=== PATIENT | male | born 1975 | race Caucasian/White ===

== ENCOUNTER 2017-02-05 08:55 | Emergency (ER) | payer OTHER ==
[~2017-02-05] VITALS: Ht 167.6 cm; Wt 120.8 kg
[2017-02-05 09:06] VITALS: TEMP 36.5; Ht 167.6 cm; Wt 120.8 kg
[2017-02-05] MEDS ORDERED: KETOROLAC TROMETHAMINE 60 MG/2 ML VIAL IM STA (09:43)
[2017-02-05] MEDS ORDERED: HYDROmorphone INJ 0.5 MG/0.5 ML SYR IM ONE (09:45)
--- NOTE | 2017-02-05 11:04 | DIAGNOSTIC IMAGING REPORT ---
LUMBAR SPINE WITHOUT CT DOSE: 1280.58 mGy.cm HISTORY: Trauma. Pain. lower selvin pain TECHNIQUE: Multiaxial CT images of the lumbar spine were performed and reformatted in the sagittal and coronal plane without the use of contrast. A dose lowering technique was utilized adhering to the principles of ALARA. COMPARISON: None. FINDINGS: Considerable degenerative disc change throughout the entire lumbar region. Mild compression deformity of L1 and L2 felt to be old based on CT criteria. Slight wedge deformity inferior endplate T12 also felt to be old. No evidence for subluxation. Moderate degenerative change posterior elements. No evidence for acute bony abnormality based on the transaxial images. Superior aspects of the sacroiliac joints are intact with mild degenerative change noted. IMPRESSION: 1. Old mild compression deformities of T12, L1, and L2. 2. No acute bony abnormality. 3. Degenerative changes throughout. The above report was generated using voice recognition software. It may contain grammatical, syntax or spelling errors. Electronically signed by: Myron Creda M.D. 02/05/2017 11:02 AM Dictated Date/Time: 02/05/2017 10:56 AM
--- NOTE | 2017-02-05 11:05 | DIAGNOSTIC IMAGING REPORT ---
PELVIS 1 OR 2 VIEW ROUTINE CLINICAL HISTORY: fall trauma. Pain. COMPARISON: None. DISCUSSION: Moderate degenerative change of the hips as well as sacroiliac joints. Moderate degenerative changes low lumbar spine. Several scattered surgical clips. Mild deformity right iliac wing probably secondary to old posttraumatic change. No evidence for acetabular protrusion. There is no evidence for soft tissue swelling. IMPRESSION: Degenerative change. No acute process. The above report was generated using voice recognition software. It may contain grammatical, syntax or spelling errors. Electronically signed by: Myron Cerda M.D. 02/05/2017 11:04 AM Dictated Date/Time: 02/05/2017 11:03 AM
[2017-02-05] MEDS ORDERED: OXYC1TAB3 PO (11:17)
[2017-02-05] MEDS ORDERED: PRED10TA PO (11:19)
[2017-02-05 11:48] VITALS: BP 181/95; PULSE 81; O2SAT 93
--- NOTE | 2017-02-05 17:00 | EMERGENCY ROOM VISIT NOTE ---
History Report prepared by Miguel: Andrew Pineda Under the Supervision of: Dr. Lj David D.O. First contact with patient: 09:26 Chief Complaint: BACK INJURY Stated Complaint: BACK PAIN History of Present Illness The patient is a 41 year old male who presents to the Emergency Room with complaints of a persistent worsening back injury that occurred two weeks ago. At this time, the patient accidentally slipped while walking down the stairs at work. He landed on the right side of his back. At that time, he got a bruise with some mild pain which he used Advil and Icy Hot to try to relieve. However, five days ago his pain began to worsen. It then radiated into the front of his right thigh. He went to an acute care clinic and received X-Rays and Prednisone of which he is on his third day. This morning, he had an extremely difficult time getting out of bed. His back pain is exacerbated with sitting or lying down. He states that his pain is better when he stands. He denies any problems urinating or defecating. He denies any fevers, previous back surgeries, IV drug use, or weakness/numbness to his legs. Pt denies headache, change in vision, fevers, chest pain, shortness of breath, nausea, vomiting, diarrhea, pain with urination, and melena. 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 Source of History: patient Onset: 2 weeks ago Position: back (right side) Symptom Intensity: moderate Quality: ache Timing: worsening Modifying Factors (Worsening): rest Modifying Factors (Relieving): other (Standing) Associated Symptoms: No headache, No chest pain, No SOB, No nausea, No vomiting, No melena, No diarrhea, No urinary symptoms, No weakness, No numbness Note: He denies any trouble urinating or defecting. Review of Systems See HPI for pertinent positives & negatives. A total of 10 systems reviewed and were otherwise negative. Past Medical & Surgical Surgical Problems: (1) History of nephrectomy, unilateral (2) Wilms' tumor Family History Cancer Hypertension Kidney disease Social History Smoking Status: Never Smoker Smokeless Tobacco Use: No Drug Use: none Occupation Status: employed Current/Historical Medications Scheduled Prednisone (Prednisone), 0 PO UD Scheduled PRN Oxycodone Immediate Rel Tab (Roxicodone Ir), 5 MG PO Q6H PRN for Pain Allergies Coded Allergies: Cefaclor (Unverified Allergy, Intermediate, RASH, 02/05/17) Erythromycin (Unverified Allergy, Intermediate, RASH, 02/05/17) Penicillins (Unverified Allergy, Intermediate, RASH, 02/05/17) Physical Exam Vital Signs Date Time Temp Pulse Resp B/P (MAP) Pulse Ox O2 Delivery O2 Flow Rate FiO2 02/05/17 11:48 81 181/95 93 02/05/17 10:30 82 18 159/84 98 Room Air 02/05/17 09:06 36.5 84 18 169/121 98 Room Air Physical Exam GENERAL: Ambulating throughout the room holding right lower back, alert, well appearing, well nourished, minimal distress, non-toxic EYE EXAM: normal conjunctiva. OROPHARYNX: no exudate, no erythema, lips, buccal mucosa, and tongue normal and mucous membranes are moist NECK: supple, no nuchal rigidity, no adenopathy, non-tender LUNGS: Clear to auscultation. Normal chest wall mechanics HEART: no murmurs, S1 normal and S2 normal ABDOMEN: abdomen soft, non-tender, normo-active bowel sounds, no masses, no rebound or guarding. BACK: There is a deformity/absence of the right lower back with scoliosis. No midline tenderness. No obvious stepoff. Tenderness to palpation over the left SI joint. SKIN: no rashes and no bruising UPPER EXTREMITIES: upper extremities are grossly normal. LOWER EXTREMITIES: Flexion and extension of the bilateral hips, knees, ankles, and EHL's are 5/5 bilaterally. Gross sensation intact. Able to walk on heels and toes. NEURO EXAM: Normal sensorium. Medical Decision & Procedures ER Provider Diagnostic Interpretation: Radiology results as stated below per my review and the radiologist's interpretation: PELVIS 1 OR 2 VIEW ROUTINE CLINICAL HISTORY: fall trauma. Pain. COMPARISON: None. DISCUSSION: Moderate degenerative change of the hips as well as sacroiliac joints. Moderate degenerative changes low lumbar spine. Several scattered surgical clips. Mild deformity right iliac wing probably secondary to old posttraumatic change. No evidence for acetabular protrusion. There is no evidence for soft tissue swelling. IMPRESSION: Degenerative change. No acute process. The above report was generated using voice recognition software. It may contain grammatical, syntax or spelling errors. Electronically signed by: Myron Cerda M.D. 02/05/2017 11:04 AM Dictated Date/Time: 02/05/2017 11:03 AM LUMBAR SPINE WITHOUT CT DOSE: 1280.58 mGy.cm HISTORY: Trauma. Pain. lower selvin pain TECHNIQUE: Multiaxial CT images of the lumbar spine were performed and reformatted in the sagittal and coronal plane without the use of contrast. A dose lowering technique was utilized adhering to the principles of ALARA. COMPARISON: None. FINDINGS: Considerable degenerative disc change throughout the entire lumbar region. Mild compression deformity of L1 and L2 felt to be old based on CT criteria. Slight wedge deformity inferior endplate T12 also felt to be old. No evidence for subluxation. Moderate degenerative change posterior elements. No evidence for acute bony abnormality based on the transaxial images. Superior aspects of the sacroiliac joints are intact with mild degenerative change noted. IMPRESSION: 1. Old mild compression deformities of T12, L1, and L2. 2. No acute bony abnormality. 3. Degenerative changes throughout. The above report was generated using voice recognition software. It may contain grammatical, syntax or spelling errors. Electronically signed by: Myron Cerda M.D. 02/05/2017 11:02 AM Dictated Date/Time: 02/05/2017 10:56 AM Medications Administered Medications (Trade) Dose Ordered Sig/Beltran Route Start Time Stop Time Status Last Admin Dose Admin Ketorolac Tromethamine (Toradol Inj) 60 mg NOW STAT IM 02/05/17 09:43 02/05/17 09:44 DC 02/05/17 09:53 60 MG Hydromorphone HCl (Dilaudid Inj) 0.5 mg NOW ONCE IM 02/05/17 09:45 02/05/17 09:46 DC 02/05/17 09:54 0.5 MG ED Course ED COURSE: Vital signs were reviewed and showed hypertension. The patients medical record was reviewed The above diagnostic studies were performed and reviewed. ED treatments and interventions as stated above. 0926: The patient was evaluated in room B7. A complete history and physical examination was performed. 0943: Ordered Toradol Inj 60 mg IM 0945: Ordered Dilaudid Inj 0.5 mg IM 1113: Upon reevaluation, the patient is resting. I discussed my findings with the patient and he understands and agrees with the treatment plan. Based on the patients age, coexisting illnesses, exam and lab findings the decision to treat as an outpatient was made. The patient remained stable while under my care. The patient appeared well at the time of discharge. Medical Decision Differential diagnoses include major intracranial, cervical, spinal, thoracic, abdominal, pelvic and neurologic injury. Fracture, contusion, sprain, strain, laceration, abrasions included as well. Patient presents to ER for 2 weeks worth of back pain following a fall. Previous x-rays per patient were negative. CT lumbar spine and x-rays of pelvis showed no acute pathology. Patient was given IM Toradol and morphine. He did have significant improvement of his pain. He was updated bedside. I do believe this is most likely radicular in nature. He will continue his steroids. He was discharged with OxyIR and instructed not to drive all taking this medications. Discussed with Pt concerning signs and symptoms to watch out for. Pt was instructed to follow up with their PCP and discussed with the patient their option to return to the ED at anytime for persistent or worsening symptoms. The appropriate anticipatory guidance and out-patient management, including indications for return to the emergency department, were explained at length to the patient and understood. [place] Drug Monitoring Program Search Results: patient reviewed within database, no issues identified Medication Reconcilliation Current Medication List: was personally reviewed by me Blood Pressure Screening Patient's blood pressure: Elevated blood pressure Blood pressure disposition: Elevated BP felt to be situational Impression Primary Impression: Back pain Scribe Attestation The scribe's documentation has been prepared under my direction and personally reviewed by me in its entirety. I confirm that the note above accurately reflects all work, treatment, procedures, and medical decision making performed by me. Departure Information Dispostion Home / Self-Care Prescriptions Oxycodone Immediate Rel Tab (ROXICODONE IR) 5 Mg Tab 5 MG PO Q6H Y for Pain, #10 TAB Prov: Lj David, 02/05/17 Referrals No Doctor, Assigned (PCP) Forms HOME CARE DOCUMENTATION FORM, IMPORTANT VISIT INFORMATION, Work Instructions Patient Instructions Back Pain - [facility], [facility] Additional Instructions Please follow up with your primary care doctor with in the next 24 hours. Any worsening of your symptoms, please return to the ED immediately. This includes any fevers greater than 100.4, worsening pain, weakness or numbness in your legs , unable to urinate, unable to move youor bowels, chest pain, shortness breath, persistent nausea, vomiting, unable to eat or drink, or any other concerning signs or symptoms from your standpoint. You were given medications during this visit that will inhibit your ability to drive, operate machinery and work. Please do NOT drive, operate machinery or work for the next 12hrs. You were also given a prescription for a narcotic. While taking this medication you should also not drive, operate machinery and or work. You were found to have a blood pressure greater than 120 systolic over 90 diastolic. Due to the new Medicare guidelines, we are now recommending that you follow up with your primary care doctor in regards to this elevated blood pressure. Problem Qualifiers Primary Impression: Back pain Back pain location: low back pain Chronicity: acute Back pain laterality: right Sciatica presence: unspecified whether sciatica present Qualified Codes : M54.5 - Low back pain
== END 2017-02-05 11:30 | disposition home or self-care (01) ==
LOC: C.EDB 08:57
DX: M54.9 Dorsalgia, unspecified (principal); Z98.890 Other specified postprocedural states; Z88.0 Allergy status to penicillin; Z88.3 Allergy status to other anti-infective agents; Z88.8 Allergy status to other drugs, medicaments and biological substances; Z80.9 Family history of malignant neoplasm, unspecified; Z82.49 Family history of ischemic heart disease and other diseases of the circulatory system

== ENCOUNTER → 2017-02-06 | Outpatient (CLI) | payer OTHER ==
[~2017-02-06] MED LIST: OXYC1TAB3 PO; PRED10TA PO
--- NOTE | 2017-02-06 15:07 | DIAGNOSTIC IMAGING REPORT ---
LUMBAR SPINE 5 VIEWS HISTORY: LOWER BACK PAIN COMPARISON: Lumbar spine CT 02/05/2017. FINDINGS: Old mild to moderate compression deformities at T12-L4. This remains unchanged. No acute fracture or subluxation. Retroperitoneal surgical clips are again noted. Mild facet osteoarthritis within the lower lumbar spine. Mild disc space narrowing at L1-L2 remains unchanged. IMPRESSION: 1. No acute fracture or subluxation within the lumbar spine. 2. Old mild to moderate compression deformities from T12 through L4, unchanged. Electronically signed by: Pieter Valle M.D. 02/06/2017 3:05 PM Dictated Date/Time: 02/06/2017 3:01 PM
== END | disposition home or self-care (01) ==
LOC: C.RDSM 14:48
PROVIDERS: ATTEND Internal Medicine
DX: M54.5 Low back pain (principal)

== ENCOUNTER 2018-06-16 03:30 | Inpatient (IN) ==
[2018-06-16] MEDS ORDERED: SODIUM CHLORIDE 0.9% 1000ML 1,000 ML IV SCH ×3 (03:45→07:27)
[2018-06-16 04:10] LABS: Basophils # (auto) 0.03 K/uL (0-0.2); Basophils % (auto) 0.2 %; Eosinophils % (auto) 2.2 %; Hematocrit (blood only) 43.3 % (42-52); Hemoglobin 14.6 g/dL (14.0-18.0); Immature Granulocytes # (auto) 0.03 K/uL (0.00-0.02); Immature Granulocytes % (auto) 0.2 %; Lymphocytes # (auto) 1.24 K/uL (1.2-3.4); Lymphocytes % (auto) 9.3 %; Mean Corpuscular Hgb Conc 33.7 g/dL (32-36); Mean Corpuscular Volume 85.4 fL (80-100); Mean Platelet Volume 10.3 fL (7.4-10.4); Monocytes # (auto) 0.85 K/uL (0.11-0.59); Monocytes % (auto) 6.4 %; Neutrophils # (auto) 10.89 K/uL (1.4-6.5); Neutrophils % (auto) 81.7 %; Platelet Count 218 K/uL (130-400); RDW Coefficient of Variation 14.1 % (11.5-14.5); Red Blood Count 5.07 M/uL (4.7-6.1); White Blood Count 13.34 K/uL (4.8-10.8)
[2018-06-16 04:12] LABS: Appearance Urine Slightly Cloudy (Clear); Bilirubin Urine Negative (Negative); Blood Urine 3+ (Negative); Color Urine Yellow; Glucose Urine UA Negative (Negative); Ketones Urine Negative (Negative); Leukocyte Esterase Urine Trace (Negative); Nitrite Urine Negative (Negative); Protein Urine 1+ (Negative); Urobilinogen Urine Negative (Negative)
[2018-06-16 04:24] LABS: RBC Urine >30 /hpf (0-4)
[2018-06-16 04:25] LABS: Bacteria Urine Negative (Negative)
--- NOTE | 2018-06-16 04:26 | Emergency Department Note ---
History of Present Illness General Chief complaint: Abdominal Pain Stated complaint: indigestion,abd pain Source: patient Mode of arrival: ambulatory Limitations: no limitations History of Present Illness Maximum Pain Intensity: 8 This patient is a 42-year-old male who presents to the emergency department complaining of abdominal pain. The patient reports that yesterday, throughout the day he had indigestion which is not unusual for him. He states that he woke up from sleep 3 hours ago due to pain in his left abdomen. He states it started as a sharp pain and is located in the left flank/lower abdomen. He has had some nausea but denies vomiting. He denies constipation, diarrhea, urinary symptoms or fevers. He denies any history of abdominal issues or surgeries. He does report a history of GERD and takes omeprazole daily for this. He does state he recently started the whole 30 diet as recommended by his physician and has had some loose stools with this. He rates his overall discomfort an 8/10. He states that nothing has made his pain better or worse since it began. Home Medications Home Medications Medication Instructions Recorded Confirmed Type cyclobenzaprine 10 mg PO HS PRN 06/16/18 06/16/18 History [id number]-[id number] acid 1 tab PO DAILY 06/16/18 06/16/18 History [Centrum] omeprazole magnesium [Prilosec OTC] 20 mg PO DAILY 06/16/18 06/16/18 History Allergies Allergy/AdvReac Type Severity Reaction Status Date / Time cefaclor Allergy Intermediate RASH Unverified 06/16/18 05:54 erythromycin base Allergy Intermediate RASH Unverified 06/16/18 05:54 Penicillins Allergy Intermediate RASH Unverified 06/16/18 05:54 Past Med/Surg History Medical History Hurthle cell neoplasm of thyroid Surgical History H/O unilateral orchiectomy H/O right nephrectomy Social History Feels Safe at Home: Yes Smoking Status: Never smoker Review of Systems A total of 10 systems reviewed and were otherwise negative Physical Exam Vital Signs Vital Signs - 24 hr 06/16/18 03:34 06/16/18 04:47 06/16/18 05:18 Temperature 36.3 C L Temperature Source Oral Sepsis Recent Fever Within 48 Hours No Sepsis New/Unexplained Change in Mental Status No Sepsis Action Taken by Nursing No Action Required Pulse Rate 90 Pulse Rate [Right Finger] 84 70 Pulse Rhythm [Right Finger] Regular Respiratory Rate 18 18 19 Respiratory Effort / Characteristics Non-Labored Spontaneous Respiratory Depth Normal Normal Respiratory Pattern Regular Blood Pressure 182/101 H Blood Pressure [Right Arm] 205/124 H 150/98 H Blood Pressure Mean 128 Blood Pressure Mean [Right Arm] 151 115 Blood Pressure Position [Right Arm] Lying Pulse Oximetry 98 97 100 Oxygen Delivery Method Room Air Room Air 06/16/18 06:10 Temperature Temperature Source Sepsis Recent Fever Within 48 Hours Sepsis New/Unexplained Change in Mental Status Sepsis Action Taken by Nursing Pulse Rate Pulse Rate [Right Finger] 73 Pulse Rhythm [Right Finger] Regular Respiratory Rate 18 Respiratory Effort / Characteristics Respiratory Depth Normal Respiratory Pattern Blood Pressure Blood Pressure [Right Arm] 145/98 H Blood Pressure Mean Blood Pressure Mean [Right Arm] 113 Blood Pressure Position [Right Arm] Pulse Oximetry 95 Oxygen Delivery Method Room Air VITALS: Vitals are noted on the nurse's note and reviewed by myself. Vital signs stable. GENERAL: This is a 42-year-old male, in no acute distress, nondiaphoretic, well- developed well-nourished. SKIN: The skin was without rashes. EYES: Pupils equal round and reactive to light and accommodation. MOUTH: Mucous membranes moist. NECK: Supple without nuchal rigidity. HEART: Regular rate and rhythm without murmurs gallops or rubs. LUNGS: Clear to auscultation bilaterally without wheezes, rales or rhonchi. ABDOMEN: Positive bowel sounds x 4. Soft, mild tenderness to palpation in the left flank. No guarding or rebound tenderness. NEURO: Patient was alert and oriented to person place and time. Course Consultations Consultation #1: Dr. Shipman - urology Dr. Shipman recommends medical admission and will consult on the patient in the morning for stent placement. Patient will be kept n.p.o. Consultation #2: Dr. Black [facility] hospitalist Administered Medications Discontinued Medications Ciprofloxacin (Cipro) Confirm Administered Dose 400 [facility] Stop: 06/16/18 06:16 Last Admin: 06/16/18 06:21 Dose: 400 mg Documented by: [id number] Sodium Chloride (Nss 1000ml) 1,000 mls @ 999 mls/hr IV .Q1H1M BRAD Stop: 06/16/18 04:45 Last Infusion: 06/16/18 05:11 Dose: 0 mls/hr Documented by: [id number] Admin: 06/16/18 04:03 Dose: 999 mls/hr Documented by: [id number] Sodium Chloride (Nss 1000ml) 1,000 mls @ 999 mls/hr IV .Q1H1M BRAD Stop: 06/16/18 06:30 Last Infusion: 06/16/18 06:48 Dose: 0 mls/hr Documented by: [id number] Admin: 06/16/18 05:45 Dose: 999 mls/hr Documented by: [id number] Morphine Sulfate (Morphine Sulfate) 6 mg IV NOW STA Stop: 06/16/18 05:02 Last Admin: 06/16/18 05:15 Dose: 6 mg Documented by: [id number] Morphine Sulfate (Morphine Sulfate) 6 mg IV NOW STA Stop: 06/16/18 06:32 Last Admin: 06/16/18 06:35 Dose: 6 mg Documented by: [id number] Ondansetron HCl (Zofran) 4 mg IV NOW STA Stop: 06/16/18 05:02 Last Admin: 06/16/18 05:15 Dose: 4 mg Documented by: [id number] Medical Decision Making Differential Diagnosis Differential diagnosis includes diverticulitis, kidney stone, colitis, bowel obstruction, gastroenteritis, among others. Medical Records Attestation: I reviewed the patient's medical records. Home Medications Current Medication List: was personally reviewed by me Laboratory Data Attestation: I reviewed the patient's lab results. Result diagrams: 06/16/18 04:00 06/16/18 04:00 Lab Results 06/16/18 06/16/18 06/16/18 Range/Units 04:00 04:00 04:01 WBC 13.34 H (4.8-10.8) K/uL RBC 5.07 (4.7-6.1) M/uL Hgb 14.6 (14.0-18.0) g/dL Hct 43.3 (42-52) % MCV 85.4 (80-100) fL MCH 28.8 (25-34) pg MCHC 33.7 (32-36) g/dL RDW Std Deviation 44.0 (36.4-46.3) fL RDW Coeff of Bibi 14.1 (11.5-14.5) % Plt Count 218 (130-400) K/uL MPV 10.3 (7.4-10.4) fL Immature Gran % (Auto) 0.2 % Neut % (Auto) 81.7 % Lymph % (Auto) 9.3 % [place] % (Auto) 6.4 % Eos % (Auto) 2.2 % Baso % (Auto) 0.2 % Immature Gran # (Auto) 0.03 H (0.00-0.02) K/uL Neut # (Auto) 10.89 H (1.4-6.5) K/uL Lymph # (Auto) 1.24 (1.2-3.4) K/uL [place] # (Auto) 0.85 H (0.11-0.59) K/uL Eos # (Auto) 0.30 (0-0.5) K/uL Baso # (Auto) 0.03 (0-0.2) K/uL Sodium 141 (136-145) mmol/L Potassium 3.7 (3.5-5.1) mmol/L Chloride 107 (98-107) mmol/L Carbon Dioxide 24 (21-32) mmol/L Anion Gap 10.0 (3-11) BUN 24 H (7-18) mg/dl Creatinine 1.72 H (0.6-1.4) mg/dl Est Cr Clr Drug Dosing 68.3 ml/min Est GFR ( Amer) 56.0 Est GFR (Non-Af Amer) 48.3 BUN/Creatinine Ratio 13.9 (10-20) Glucose 105 H (70-99) mg/dl Calcium 9.3 (8.5-10.1) mg/dl Total Bilirubin 0.4 (0.2-1) mg/dl AST 23 (15-37) U/L ALT 34 (12-78) U/L Alkaline Phosphatase 67 (45-117) U/L Troponin I < 0.015 (0-0.045) ng/ml Total Protein 7.5 (6.4-8.2) gm/dl Albumin 4.0 (3.4-5.0) gm/dl Globulin 3.5 (2.5-4.0) gm/dl Albumin/Globulin Ratio 1.1 (0.9-2) Urine Color Yellow Urine Appearance Slightly Cloudy (Clear) Urine pH 5.0 (4.5-7.5) Ur Specific [place] 1.020 (1.000-1.030) Urine Protein 1+ H (Negative) Urine Glucose (UA) Negative (Negative) Urine Ketones Negative (Negative) Urine Blood 3+ H (Negative) Urine Nitrite Negative (Negative) Urine Bilirubin Negative (Negative) Urine Urobilinogen Negative (Negative) Ur Leukocyte Esterase Trace H (Negative) Urine RBC >30 H (0-4) /hpf Urine WBC 5-10 H (0-5) /hpf Ur Epithelial Cells 10-20 H (0-5) /lpf Urine Bacteria Negative (Negative) Hyaline Casts 5-10 H (0-5) /lpf Imaging Data Attestation: I personally reviewed and interpreted this imaging study as follows: Radiologist's Impression: CT ABDOMEN & PELVIS Without Contrast: No prior Axial images only. Obstructive distal left ureteral stone measuring about 6 mm in size. Infiltration around left kidney and ureter. Nonobstructive left renal stones. Postop changes with right nephrectomy and other nonemergent/incidentals. Radiologist: Mg Ribera M.D. Blood Pressure Blood Pressure Findings: Elevated blood pressure Blood Pressure Disposition: further management by hospitalist ROMMEL Narrative The patient is a 42-year-old male who presents today complaining of left flank pain. Labs revealed a mild leukocytosis of 13,000. Urinalysis was positive for blood. CT scan did show a 6 mm left ureteral stone. Patient has a history of a right nephrectomy and also has an elevation in creatinine. Given this, patient will require admission and likely ureteral stenting. I did speak with urology w pam recommended medical admission. Case was discussed with the [facility] hospitalist for admission. Patient was given 2 L of IV fluids while in the ER as well as morphine and Zofran for symptomatic relief. Impression & Plan Calculus of distal left ureter, Acute kidney injury Discharge Plan Visit Data Chief Complaint: Abdominal Pain Stated Complaint: indigestion,abd pain ED Provider: Aditya Johnson ED Midlevel Provider: Tasia Worrell Discharge Problem: Calculus of distal left ureter, Acute kidney injury Patient Disposition: Admitted As Inpatient Forms Stand Alone Forms: Call Back Authorization, [facility] Prescriptions Prescriptions: No Action cyclobenzaprine 10 mg Tablet 10 mg PO HS PRN (Reason: Back Pain) RF: 0 Prilosec OTC 20 mg Tablet,Delayed Release (Dr/Ec) 20 mg PO DAILY RF: 0 Centrum 18-400 mg-mcg Tablet 1 tab PO DAILY RF: 0 Referrals Referrals: Myrna Diaz DO [Primary Care Provider] -
[2018-06-16 04:27] LABS: Alanine Aminotransferase 34 U/L (12-78); Aspartate Aminotransferase 23 U/L (15-37); BUN Creatinine Ratio 13.9 (10-20); Blood Urea Nitrogen 24 mg/dl (7-18); Calcium 9.3 mg/dl (8.5-10.1); Carbon Dioxide 24 mmol/L (21-32); Chloride 107 mmol/L (98-107); Creatinine Clr Calc Pharmacy 68.3 ml/min; Est GFR (Non-African American) 48.3; Glucose 105 mg/dl (70-99); Potassium 3.7 mmol/L (3.5-5.1); Sodium 141 mmol/L (136-145)
[2018-06-16 04:32] LABS: Albumin Globulin Ratio 1.1 (0.9-2); Alkaline Phosphatase 67 U/L (45-117); Bilirubin,Total 0.4 mg/dl (0.2-1); Globulin 3.5 gm/dl (2.5-4.0); Total Protein 7.5 gm/dl (6.4-8.2); Troponin I < 0.015 ng/ml (0-0.045)
[2018-06-16] MEDS ORDERED: MoRPHine SULFATE 10 MG/ML CARP/VIAL IV STA ×2 (05:01→06:31)
[2018-06-16] MEDS ORDERED: ONDANSETRON INJ 2 MG/ML 2 ML VIAL IV STA (05:01)
[2018-06-16] MEDS ORDERED: CIPROFLOXACIN 400MG / 200ML D5W IV ONE (06:15)
[2018-06-16] MEDS ORDERED: CIPROFLOXACIN 400 MG/200 ML BAG IV SCH (06:15)
--- NOTE | 2018-06-16 06:57 | History & Physical Report ---
Date of Service June 16, 2018 Assessment & Plan (1) Calculus of distal left ureter: Obstructive distal left ureteral stone 6 mm in size/left kidney and ureter surrounding infiltration-- Admit to medical surgical floor. NPO. Received 2 L of normal saline in the ED. Place on NSS at 125 mL's per hour. Cipro 400 mg IV every 12 hours. Zofran 4 mg IV every 6 hours as needed. Famotidine 20 mg IV every 12 hours. Acetaminophen 1000 mg IV every 8 hours as needed mild pain or temperature Dilaudid 0.5 mg IV every 3 hours as needed severe pain. Consult urology Dr. Shipman Present on Admission?: Yes (2) Acute kidney injury: Creatinine today is 1.72, with baseline creatinine 0.88. Continue rehydration with IV fluids. Continue to follow labs serially. 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 As above. Present on Admission?: Yes (5) Obesity: BMI 41.9 kg Present on Admission?: Yes (6) Hurthle cell neoplasm of thyroid: Thyroid ultrasound performed on 05/30/18 showed a multinodular thyroid gland with a dominant solid hypoechoic 1.9 cm nodule within the lower pole of the left lobe. He then underwent aspiration of the nodule on 05/30/18 Pathology has been read as findings suspicious for a Hurthle Cell neoplasm, for which she has an appointment to see a [facility]NT coming in to [facility] on Sunday 06/18. Present on Admission?: Yes History of Present Illness Chief Complaint: The patient presents to the emergency department with complaint of indigestion which began yesterday, and then was woken up from sleep by severe pain in his left abdomen and back area about 3 hours prior to arrival to the ED. Primary Care Provider: Myrna Diaz DO The patient is a 42-year-old male with past medical history including a right nephrectomy and right orchiectomy at age 15 due to tumor, with no previous history of kidney stones, who had recently changed his diet to the whole 30 diet. Workup in the emergency department included laboratories and imaging studies. WBC was elevated at 13.34, creatinine was increased to 1.72, and CT of abdomen pelvis showed an obstructing 6 mm left ureteral stone and left kidney and ureter infiltration, and also demonstrated right nephrectomy. Allergies Allergy/AdvReac Type Severity Reaction Status Date / Time cefaclor Allergy Intermediate RASH Unverified 06/16/18 05:54 erythromycin base Allergy Intermediate RASH Unverified 06/16/18 05:54 Penicillins Allergy Intermediate RASH Unverified 06/16/18 05:54 Home Medications Home Medications Medication Instructions Recorded Confirmed Type cyclobenzaprine 10 mg PO HS PRN 06/16/18 06/16/18 History djxpfsomqrgd-sksl-xrszr acid 1 tab PO DAILY 06/16/18 06/16/18 History [Centrum] omeprazole magnesium [Prilosec OTC] 20 mg PO DAILY 06/16/18 06/16/18 History Past Med/Surg History Medical History No significant active problems Social History Feels Safe at Home: Yes Smoking Status: Never smoker Review of Systems The patient denies chest pain, palpitations, shortness of breath, dyspnea on exertion, cough, lower extremity swelling, sore throat, fevers, chills, sweats, weight change, fatigue, vomiting, constipation, blood in urine or stool, dysuria, urinary frequency urgency, lightheadedness, dizziness, headache, memory loss, loss of consciousness, rash, abnormal bruising or bleeding, imbalance, focal or generalized weakness, numbness or tingling in arms or legs, generalized arthralgias or myalgias, neck pain, or night sweats. The review of systems is otherwise negative other than for that already noted above, and at least 10 systems have been reviewed. Physical Exam Vital Signs (Past 24 Hours): Last Vital Signs Temp 36.3 C L 06/16/18 03:34 Pulse 73 06/16/18 06:10 Resp 18 06/16/18 06:10 BP 145/98 H 06/16/18 06:10 Pulse Ox 95 06/16/18 06:10 Physical Exam: The patient is awake, alert and oriented 3, well developed and well nourished, normocephalic and atraumatic, lying in bed and in mild acute distress secondary to pain. HEENT--PERRL, EOMI, mucous membranes and oropharynx dry. Neck--supple. No JVD. No bruits. Thyroid normal, trachea midline, no adenopathy. Heart--normal S1 and S2. No murmurs, rubs or gallops. Lungs--clear bilaterally, no respiratory distress, no accessory muscle use. Abdomen--normal bowel sounds and soft. Nontender. Nondistended. Obese. Extremities--no cyanosis or clubbing. No edema. There are good distal pulses b/l. Dermatologic--normal skin turgor, normal color, no abnormal lymph nodes, no rash. Neurologic--cranial nerves II through XII grossly intact. Rheumatologic--normal range of motion. Psychiatric--normal affect. Results & Data Laboratory Results Laboratory Results WBC 13.34 K/uL (4.8-10.8) H 06/16/18 04:00 RBC 5.07 M/uL (4.7-6.1) 06/16/18 04:00 Hgb 14.6 g/dL (14.0-18.0) 06/16/18 04:00 Hct 43.3 % (42-52) 06/16/18 04:00 MCV 85.4 fL (80-100) 06/16/18 04:00 MCH 28.8 pg (25-34) 06/16/18 04:00 MCHC 33.7 g/dL (32-36) 06/16/18 04:00 RDW Std Deviation 44.0 fL (36.4-46.3) 06/16/18 04:00 RDW Coeff of Bibi 14.1 % (11.5-14.5) 06/16/18 04:00 Plt Count 218 K/uL (130-400) 06/16/18 04:00 MPV 10.3 fL (7.4-10.4) 06/16/18 04:00 Immature Gran % (Auto) 0.2 % 06/16/18 04:00 Neut % (Auto) 81.7 % 06/16/18 04:00 Lymph % (Auto) 9.3 % 06/16/18 04:00 [place] % (Auto) 6.4 % 06/16/18 04:00 Eos % (Auto) 2.2 % 06/16/18 04:00 Baso % (Auto) 0.2 % 06/16/18 04:00 Immature Gran # (Auto) 0.03 K/uL (0.00-0.02) H 06/16/18 04:00 Neut # (Auto) 10.89 K/uL (1.4-6.5) H 06/16/18 04:00 Lymph # (Auto) 1.24 K/uL (1.2-3.4) 06/16/18 04:00 [place] # (Auto) 0.85 K/uL (0.11-0.59) H 06/16/18 04:00 Eos # (Auto) 0.30 K/uL (0-0.5) 06/16/18 04:00 Baso # (Auto) 0.03 K/uL (0-0.2) 06/16/18 04:00 Sodium 141 mmol/L (136-145) 06/16/18 04:00 Potassium 3.7 mmol/L (3.5-5.1) 06/16/18 04:00 Chloride 107 mmol/L (98-107) 06/16/18 04:00 Carbon Dioxide 24 mmol/L (21-32) 06/16/18 04:00 Anion Gap 10.0 (3-11) 06/16/18 04:00 BUN 24 mg/dl (7-18) H 06/16/18 04:00 Creatinine 1.72 mg/dl (0.6-1.4) H 06/16/18 04:00 Est Cr Clr Drug Dosing 68.3 ml/min 06/16/18 04:00 Est GFR ( Amer) 56.0 06/16/18 04:00 Est GFR (Non-Af Amer) 48.3 06/16/18 04:00 BUN/Creatinine Ratio 13.9 (10-20) 06/16/18 04:00 Glucose 105 mg/dl (70-99) H 06/16/18 04:00 Calcium 9.3 mg/dl (8.5-10.1) 06/16/18 04:00 Total Bilirubin 0.4 mg/dl (0.2-1) 06/16/18 04:00 AST 23 U/L (15-37) 06/16/18 04:00 ALT 34 U/L (12-78) 06/16/18 04:00 Alkaline Phosphatase 67 U/L (45-117) 06/16/18 04:00 Troponin I < 0.015 ng/ml (0-0.045) 06/16/18 04:00 Total Protein 7.5 gm/dl (6.4-8.2) 06/16/18 04:00 Albumin 4.0 gm/dl (3.4-5.0) 06/16/18 04:00 Globulin 3.5 gm/dl (2.5-4.0) 06/16/18 04:00 Albumin/Globulin Ratio 1.1 (0.9-2) 06/16/18 04:00 Urine Color Yellow 06/16/18 04:01 Urine Appearance Slightly Cloudy (Clear) 06/16/18 04:01 Urine pH 5.0 (4.5-7.5) 06/16/18 04:01 Ur Specific [place] 1.020 (1.000-1.030) 06/16/18 04:01 Urine Protein 1+ (Negative) H 06/16/18 04:01 Urine Glucose (UA) Negative (Negative) 06/16/18 04:01 Urine Ketones Negative (Negative) 06/16/18 04:01 Urine Blood 3+ (Negative) H 06/16/18 04:01 Urine Nitrite Negative (Negative) 06/16/18 04:01 Urine Bilirubin Negative (Negative) 06/16/18 04:01 Urine Urobilinogen Negative (Negative) 06/16/18 04:01 Ur Leukocyte Esterase Trace (Negative) H 06/16/18 04:01 Urine RBC >30 /hpf (0-4) H 06/16/18 04:01 Urine WBC 5-10 /hpf (0-5) H 06/16/18 04:01 Ur Epithelial Cells 10-20 /lpf (0-5) H 06/16/18 04:01 Urine Bacteria Negative (Negative) 06/16/18 04:01 Hyaline Casts 5-10 /lpf (0-5) H 06/16/18 04:[address] of abdomen and pelvis shows obstructing distal left ureteral stone 6 mm in size, with left kidney and ureter infiltration. Right nephrectomy. Code Status & VTE Plan Code Status Full code VTE Prophylaxis Plan VTE Prophylaxis will be ordered: Yes
[2018-06-16] MEDS ORDERED: ONDANSETRON INJ 2 MG/ML 2 ML VIAL IV PRN ×2 (07:27→13:02)
--- NOTE | 2018-06-16 07:42 | CT Scan Report ---
CT abd pelvis wo con CLINICAL HISTORY: 42 years-old Male presenting with left flank pain, history of left nephrectomy. TECHNIQUE: Multidetector CT of the abdomen and pelvis was performed without the use of intravenous co ntrast. IV contrast: None. One or more dose lowering techniques were used consistent with the princip les of ALARA (as low as reasonably achievable), including automatic exposure control, mA or kV adjust ment to individual patient size, and/or use of iterative reconstruction. COMPARISON: None. CT DOSE (mGy.cm): The estimated cumulative dose is 1087.88 mGy.cm. FINDINGS: [employer] topogram: Surgical material projects over the right paraspinal region. Lung bases: Top normal heart size. No pericardial or pleural effusion. Minimal dependent changes like ly atelectasis. Solid subpleural 6 mm nodule in the lateral segment of the right middle lobe (series 3 image 30). Solid subpleural 5 mm nodule in the lateral basal right lower lobe (series 3 image 96). Liver: Normal morphology. Density consistent with hepatic steatosis. Biliary: No gross biliary ductal dilatation allowing for noncontrast technique. Normal gallbladder. Pancreas: Moderate parenchymal atrophy. Spleen: Normal noncontrast appearance. Adrenal glands: 2.4 cm nodule in the lateral limb of the left adrenal gland compatible with benign li pid rich adenoma by density. Additional smaller 1.6 cm benign adenoma in the medial limb of the left adrenal gland. Right adrenal gland may be surgically absent. Kidneys and ureters: The patient is status post right nephrectomy. Nonobstructive, calculi at the low er pole of the left kidney. Moderate left pelvocaliectasis with distention of the left ureter to the level of an obstructing 5 mm calculus in the mid to distal left ureter. Moderate left perinephric fat infiltration. Bladder: Incompletely evaluated secondary to underdistention. Pelvic organs: Normal noncontrast appearance. Bowel: Feces noted in the distal small bowel without evidence of obstruction. The appendix is not vis ualized. Peritoneal cavity: No free fluid or intraperitoneal gas. Lymph nodes: No gross lymphadenopathy allowing for noncontrast technique. Vasculature: Atherosclerosis of the normal caliber abdominal aorta. Abdominal wall: Diastasis of the rectus abdominis. Postsurgical changes of the right abdominal wall. Musculoskeletal: Degenerative changes of the spine. Postsurgical changes or posttraumatic changes of the right posterior ribs. IMPRESSION: 1. Obstructing 5 mm calculus in the mid to distal left ureter with moderate left hydroureteronephros is. Nonobstructing additional lower pole left renal calculi. 2. Surgically absent right kidney. 3. Feces in the distal small bowel suggest delayed transit or bacterial overgrowth. No bowel obstruc tion. 4. Multiple solid pulmonary nodules measuring up to 6 mm. Follow-up per Hannah Society 2017 recom mendations below. 5. Benign left adrenal adenomas. Summary of Fleischner Society 2017 Recommendations (H Aden et al. Guidelines for management of i ncidental pulmonary nodules detected on CT images: From the Fleischner Society 2017. Radiology 2017; 284: 228-243.) SOLID NODULES Single nodule; size < 6 mm * Low risk patients: No routine follow-up * High risk patients: Optional CT at 12 months Single nodule; size 6-8 mm * Low risk patients: CT at 6-12 months, then consider CT at 18-24 months * High risk patients: CT at 6-12 months, then at 18-24 months Single nodule; size > 8 mm * Either low or high risk patients: Considered CT at 3 months, PET/CT, or tissue sampling Multiple nodules; size < 6 mm * Low risk patients: No routine follow up * High risk patients: Optional CT at 12 months Multiple nodules; size 6-8 mm * Low risk patients: CT at 3-6 months, then consider CT at 18-24 months * High risk patients: CT at 3-6 months, then at 18-24 months Multiple nodules; size > 8 mm * Low risk patients: CT at 3-6 months, then consider at 18-24 months * High risk patients: CT at 3-6 months, then at 18-24 months SUBSOLID NODULES Single ground-glass nodule * Nodule size < 6 mm: No routine follow-up * Nodule size > or = 6 mm: CT at 6-12 months to confirm persistence, then CT every 2 years until 5 y ears Single part-solid nodule * Nodule size < 6 mm: No routine follow-up * Nodules size > or = 6 mm: CT at 3-6 months to confirm persistence. If unchanged and solid componen t remains < 6 mm, annual CT should be performed for 5 years Multiple nodules * Nodule size < 6 mm: CT at 3-6 months. If stable, consider CT at 2 and 4 years. * Nodules size > or = 6 mm: CT at 3-6 months. Subsequent management based on the most suspicious nod ule(s) NOTE: 1) These guidelines apply to incidental nodules. These guidelines do NOT apply to patients younger th an 35 years, immunocompromised patients, or patients with cancer. 2) Risk categories: * Low risk patients: Minimal or absent history of smoking and/or other known risk factors * High risk patients: History of smoking, exposure to other carcinogens, emphysema, fibrosis, upper lobe location, family history of lung cancer, etc. 3) If a nodule up to 8 mm is partly solid or is ground glass, further follow-up is required after 24 months to exclude possible slow growing adenocarcinoma. Electronically signed by: Jono Casas M.D. 06/16/2018 7:39 AM
--- NOTE | 2018-06-16 08:17 | Hospitalist Progress Note ---
Date of Service June 16, 2018 Assessment & Plan (1) Calculus of distal left ureter: Obstructive distal left ureteral stone 6 mm in size/left kidney and ureter surrounding infiltration-- NPO. Received 2 L of normal saline in the ED. Continue NSS at 125 mL's per hour. Continue Cipro 400 mg IV every 12 hours. Continue Zofran 4 mg IV every 6 hours as needed. Continue Famotidine 20 mg IV every 12 hours. Acetaminophen 1000 mg IV every 8 hours as needed mild pain or temperature Dilaudid 0.5 mg IV every 3 hours as needed severe pain. Consulted urology Dr. Shipman - will go to the OR today. 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 Low risk RCRI (2) Acute kidney injury: Creatinine today is 1.72, with baseline creatinine 0.88. Continue rehydration with IV fluids. 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 As above. (5) Obesity: BMI 41.9 kg (6) Hurthle cell neoplasm of thyroid: Thyroid ultrasound performed on 05/30/18 showed a multinodular thyroid gland with a dominant solid hypoechoic 1.9 cm nodule within the lower pole of the left lobe. He then underwent aspiration of the nodule on 05/30/18 Pathology has been read as findings suspicious for a Hurthle Cell neoplasm, for which she has an appointment to see a [facility] ENT coming in to [place] [facility] on Sunday 06/18. (7) Pulmonary nodules: Multiple solid pulmonary nodules measuring up to 6 mm. Will need follow up with reimaging per Anthony criteria - pulmonary nodule program consulted - patient reports these were also seen on PET scan 4 years ago (8) DVT prophylaxis: SCDs Subjective Mr. Castillo will be leaving shortly for the OR. His pain is well managed. He is not nauseas or vomiting. Review of Systems All systems reviewed & are unremarkable except as noted in HPI & below Physical Exam Vital Signs (Past 24 Hours): Last Vital Signs Temp 36.8 C 06/16/18 07:52 Pulse 65 06/16/18 07:52 Resp 16 06/16/18 07:52 BP 159/73 H 06/16/18 07:52 Pulse Ox 95 06/16/18 07:52 Physical Exam: General: no distress Eyes: normal inspection, PERLL Respiratory: chest non tender, clear to auscultation, normal breath sounds, no respiratory distress, no accessory muscle use Cardiac: regular rate and rhythm, no rub or gallop, no murmur, no edema, no jvd GI/: active bowel sounds, no abd pain or tenderness, soft, non distended Extremities: normal range of motion, normal strength, non tender Neuro/Psych: alert and oriented x 3, normal mood and affect Skin: normal color, dry Results & Data Laboratory Results Abnormal lab results 06/16/18 06/16/18 06/16/18 Range/Units 04:00 04:00 04:01 WBC 13.34 H (4.8-10.8) K/uL Immature Gran # (Auto) 0.03 H (0.00-0.02) K/uL Neut # (Auto) 10.89 H (1.4-6.5) K/uL [place] # (Auto) 0.85 H (0.11-0.59) K/uL BUN 24 H (7-18) mg/dl Creatinine 1.72 H (0.6-1.4) mg/dl Glucose 105 H (70-99) mg/dl Urine Protein 1+ H (Negative) Urine Blood 3+ H (Negative) Ur Leukocyte Esterase Trace H (Negative) Urine RBC >30 H (0-4) /hpf Urine WBC 5-10 H (0-5) /hpf Ur Epithelial Cells 10-20 H (0-5) /lpf Hyaline Casts 5-10 H (0-5) /lpf
[2018-06-16] MEDS: FAMOTIDINE 20 MG in SYRINGE 3 ML IV SCH ×2 (08:24→21:09)
--- NOTE | 2018-06-16 09:07 | Anesthesiology Consultation ---
Date of Service June 16, 2018 Assessment & Plan Chart Review Chart Review: Acceptable Risk for Surgery and Patient NOT seen in Pre Admission Testing Consults Requested none ASA [id number] Proposed Anesthesia Anesthesia Type: General History Surgery Operation Date: 06/16/18 11:00 Proposed Procedures p Laser Lithotripsy Jarrett - Sulaiman Shipman MD Height/Weight Height: 5 ft 6 in Weight: 118.4 kg Allergies Allergy/AdvReac Type Severity Reaction Status Date / Time cefaclor Allergy Intermediate RASH Unverified 06/16/18 05:54 erythromycin base Allergy Intermediate RASH Unverified 06/16/18 05:54 Penicillins Allergy Intermediate RASH Unverified 06/16/18 05:54 Medications Home Medications Medication Instructions Recorded Confirmed Last Taken cyclobenzaprine 10 mg PO HS PRN 06/16/18 06/16/18 Unknown jachxkohquri-mkzw-jvhny acid 1 tab PO DAILY 06/16/18 06/16/18 06/15/18 [Centrum] omeprazole magnesium [Prilosec OTC] 20 mg PO DAILY 06/16/18 06/16/18 06/15/18 Active Medications Generic Name Dose Route Start Last Admin Trade Name Freq PRN Reason Stop Dose Admin Ciprofloxacin 400 mg in 200 mls @ 100 mls/hr 06/16/18 06:15 06/16/18 08:56 Cipro IV 06/26/18 06:14 Not Given Q12H BRAD Sodium Chloride 1,000 mls @ 125 mls/hr 06/16/18 07:27 06/16/18 08:24 Nss 1000ml IV 07/16/18 07:26 125 mls/hr .Q8H BRAD Administration Famotidine 20 mg/ Syringe 5 mls @ 2.5 mls/min 06/16/18 09:00 06/16/18 08:24 IV 07/16/18 07:26 2.5 mls/min Q12H BRAD Administration Past Medical History Medical History Hurthle cell neoplasm of thyroid MARYCARMEN (acute kidney injury) HLD (hyperlipidemia) HTN (hypertension) History of ASCVD (atherosclerotic cardiovascular disease) Kidney stone on left side Morbid (severe) obesity due to excess calories Past Surgical History Surgical History H/O unilateral orchiectomy H/O right nephrectomy Past Anesthesia History No Hx of Anesthesia Complications and No Family Hx of Anesthesia Complications History of PONV No Motion Sickness Screening History of Motion Sickness: No Social History Smoking Status: Never smoker Do You Dip or Chew Tobacco: No Hx Alcohol Use: Yes alcohol intake frequency: holidays/special occasions only Hx Substance Use: No substance use type: does not use Exercise / Class Metabolic Activity II 4-5 Yardwork/Stairs/Walk up hill Physical Exam Vital Signs Last Vital Signs Temp 36.8 C 06/16/18 07:52 Pulse 65 06/16/18 07:52 Resp 16 06/16/18 07:52 BP 159/73 H 06/16/18 07:52 Pulse Ox 95 06/16/18 07:52 Testing Laboratory Results 06/16/18 04:00 06/16/18 04:00 Urine Color Yellow 06/16/18 04:01 Urine Appearance Slightly Cloudy (Clear) 06/16/18 04:01 Urine pH 5.0 (4.5-7.5) 06/16/18 04:01 Ur Specific [place] 1.020 (1.000-1.030) 06/16/18 04:01 Urine Protein 1+ (Negative) H 06/16/18 04:01 Urine Glucose (UA) Negative (Negative) 06/16/18 04:01 Urine Ketones Negative (Negative) 06/16/18 04:01 Urine Nitrite Negative (Negative) 06/16/18 04:01 Ur Leukocyte Esterase Trace (Negative) H 06/16/18 04:01 Urine RBC >30 /hpf (0-4) H 06/16/18 04:01 Urine WBC 5-10 /hpf (0-5) H 06/16/18 04:01 Ur Epithelial Cells 10-20 /lpf (0-5) H 06/16/18 04:01
[2018-06-16] MEDS: HYDROmorphone INJ 0.5 MG/0.5 ML SYR IV PRN ×3 (09:17→22:41)
--- NOTE | 2018-06-16 11:01 | Urology Consultation ---
Date of Consultation June 16, 2018 42-year-old male with a history of a Wilms tumor and right nephrectomy at 4 years of age presented with sudden onset of left sided pain nausea yesterday to the emergency room. He had a noncontrast CAT scan that shows stones in the lower pole of his left kidney and a obstructing 6 mm stone in the distal ureter aboveThe patient denies any fever or history of UTI. Of note he recently has been diagnosed with Hurthle cells in his thyroid and is pending a consult in [place] next week. Patient is currently anuric. Given the obstruction and a solitary kidney have advised the patient to proceed with left ureteroscopy of the distal stone and if difficulty is encountered left stent placement. Discussed the more proximal stone unlikely to address this today. It appears to be in the lower pole may be amenable to ESWL or subsequent ureteroscopy. If the proximal ureter appears to be significantly dilated may consider attempting flexible ureteroscopy. Discussed the risk of the procedure given that he has a solitary kidney will be somewhat more cautious with possibly placing a stent in the to avoid damaging the ureter. He understands the risk of damage to the ureter need for possible repeat procedure from either the distal stone and the renal stone and wishes to proceed. History of Present Illness Attending Physician: Ish Denney MD Allergies Allergy/AdvReac Type Severity Reaction Status Date / Time cefaclor Allergy Intermediate RASH Unverified 06/16/18 05:54 erythromycin base Allergy Intermediate RASH Unverified 06/16/18 05:54 Penicillins Allergy Intermediate RASH Unverified 06/16/18 05:54 Home Medications Home Medications Medication Instructions Recorded Confirmed Type cyclobenzaprine 10 mg PO HS PRN 06/16/18 06/16/18 History nirbeugqndxk-gots-cdizg acid 1 tab PO DAILY 06/16/18 06/16/18 History [Centrum] omeprazole magnesium [Prilosec OTC] 20 mg PO DAILY 06/16/18 06/16/18 History Patient History Medical History Hurthle cell neoplasm of thyroid MARYCARMEN (acute kidney injury) HLD (hyperlipidemia) HTN (hypertension) History of ASCVD (atherosclerotic cardiovascular disease) Kidney stone on left side Morbid (severe) obesity due to excess calories Surgical History H/O unilateral orchiectomy H/O right nephrectomy Social History Communication Ability: Effective Beliefs That Will Affect Care: None marital status: Current Living Situation: Spouse Other Information That Helps Us Care for You: Yes (found hurthel cells in thyroid) Feels Safe at Home: Yes Safety Concerns: Feels Safe At This Time Smoking Status: Never smoker Hx Alcohol Use: Yes Hx Substance Use: No Physical Exam Vital Signs (Past 24 Hours): Last Vital Signs Temp 36.8 C 06/16/18 07:52 Pulse 65 06/16/18 07:52 Resp 16 06/16/18 07:52 BP 159/73 H 06/16/18 07:52 Pulse Ox 95 06/16/18 07:52 Physical Exam: Patient is slightly overweight male in minimal to moderate distress HEENT is noncontributory Patient has no respiratory distress Positive left flank pain and abdominal pain to palpation and percussion Patient is alert and oriented without any focal or sensory deficits Extremities unremarkable without edema Abdomen is otherwise soft and nontender except for the left lower quadrant Mood appears normal and appropriate Skin patient appears somewhat pale exam is deferred Results & Data Laboratory Results White blood cell count is 13.34 Creatinine is 1.72 Urine does show hematuria as well as some pyuria but no definite bacteria Diagnostic Findings CT does show left lower pole stones and a stone several centimeters above the left UVJ
[2018-06-16] MEDS: SODIUM CHLORIDE 0.45 % 1,000 ML IV SCH ×2 (11:13→18:24)
[2018-06-16] MEDS ORDERED: PROPOFOL IV EMULSION 10 MG/ML 20 ML VIAL IV ONE (12:57)
[2018-06-16] MEDS ORDERED: MIDAZOLAM HCL 1 MG/ML 2ML VIAL ONE (12:57)
[2018-06-16] MEDS ORDERED: ONDANSETRON INJ 2 MG/ML 2 ML VIAL ONE (12:57)
[2018-06-16] MEDS ORDERED: fentaNYL citrate 100 MCG/2 ML VIAL ONE (12:57)
[2018-06-16] MEDS ORDERED: LIDOCAINE HCL 2% 2 ML VIAL/AMP(20MG/ML) INFIL ONE (12:57)
[2018-06-16] MEDS ORDERED: DEXAMETHASONE SOD INJ 4 MG/ML VIAL ONE (12:57)
[2018-06-16] MEDS ORDERED: fentaNYL citrate 100 MCG/2 ML VIAL IV PRN (13:02)
[2018-06-16] MEDS ORDERED: PROMETHAZINE HCL 12.5 MG in SODIUM CHLORIDE 0.9% 50 ML IV PRN (13:02)
[2018-06-16] MEDS ORDERED: FLUMAZENIL 0.1 MG/1 ML 10 ML VIAL IV PRN (13:02)
[2018-06-16] MEDS ORDERED: ATROPINE SULFATE 0.1 MG/ML 10ML SYR IV PRN (13:02)
[2018-06-16] MEDS ORDERED: LABETALOL HCL IV 5 MG/ML 20ML IV PRN (13:02)
[2018-06-16] MEDS ORDERED: ePHEDrine sulfate 50 MG/ML AMP IV PRN (13:02)
[2018-06-16] MEDS ORDERED: NALOXONE HCL 0.4 MG/1 ML VIAL/CARP IV PRN (13:02)
[2018-06-16] MEDS ORDERED: IOTHALAMATE MEGLUMINE II 17.2% 250 ML VIAL ONE (13:20)
[2018-06-16] MEDS ORDERED: SUCCINYLCHOLINE CHLORIDE 20 MG/ML 10 ML VIAL ONE (13:36)
--- NOTE | 2018-06-16 14:09 | Post Operative Brief Note ---
Immediate Post Op Note v1 Date of Surgery June 16, 2018 Pre & Post Diagnosis Operation Date: 06/16/18 11:00 Pre-Op Diagnosis: Left ureteral stones Post-Op Diagnosis: Left ureteral stones Procedure Operation Date: 06/16/18 11:00 Actual Procedures p Cystoscopy, left ureteroscopy, balloon dilatation, stent placement left urete r(Left) - Sulaiman Shipman MD Surgeon Sulaiman Shipman MD [employer] none Estimated Blood Loss 5 Findings Consistent with Post-Op Diagnosis
[2018-06-16] MEDS ORDERED: CYCLOBENZAPRINE HCL 10 MG TAB PO PRN (14:13)
--- NOTE | 2018-06-16 14:42 | Fluoroscopy Report ---
FL retrograde includes kub CLINICAL HISTORY: 42 years-old Male presenting with RETROGRADE. TECHNIQUE: 1 fluoroscopic image(s) recorded as part of an intraoperative procedure. COMPARISON: CT performed earlier the same day. FINDINGS/IMPRESSION: Left ureteral stent in place. Please see surgical report for further details. Fluoroscopy dosage (mGy): 29.32. Fluoroscopy time: 73.6 seconds. Number or time of high level fluoroscopy (HLF), digital spot, or digital subtraction images: 0. Electronically signed by: Jono Casas M.D. 06/16/2018 2:40 PM
[2018-06-16] MEDS: ACETAMINOPHEN 1,000 MG/100 ML VIAL IV PRN (15:23)
--- NOTE | 2018-06-16 15:55 | Anesthesiology Progress Note ---
Date of Service June 16, 2018 Anesthesia Post Procedure Vital Signs Vital Signs: Temp Pulse Pulse Pulse Pulse Resp BP 06/16/18 15:46 36.2 C L 83 19 06/16/18 15:05 89 18 06/16/18 14:55 36.5 C 70 18 06/16/18 14:45 58 L 18 06/16/18 14:35 70 18 06/16/18 14:29 36.2 C L 86 18 06/16/18 07:52 36.8 C 65 16 06/16/18 07:20 37 C 71 16 06/16/18 07:10 71 18 155/97 H 06/16/18 06:10 73 18 06/16/18 05:18 70 19 06/16/18 04:47 84 18 06/16/18 03:34 36.3 C L 90 18 182/101 H BP BP Pulse Ox 06/16/18 15:46 142/82 H 95 06/16/18 15:05 156/88 H 97 06/16/18 14:55 149/88 H 97 06/16/18 14:45 146/78 H 100 06/16/18 14:35 150/83 H 100 06/16/18 14:29 122/84 100 06/16/18 07:52 159/73 H 95 06/16/18 07:20 130/90 96 06/16/18 07:10 98 06/16/18 06:10 145/98 H 95 06/16/18 05:18 150/98 H 100 06/16/18 04:47 205/124 H 97 06/16/18 03:34 98 Pain Intensity Left Upper Abdomen: Pain Intensity: 6 Notes Mental Status: alert / awake / arousable Patient Amnestic to Procedure: Yes Nausea / Vomiting: adequately controlled Pain: adequately controlled Airway Patency, RR, SpO2: stable & adequate BP & HR: stable & adequate Hydration State: stable & adequate Anesthetic Complications: no major complications apparent
--- NOTE | 2018-06-16 16:02 | XRay Report ---
XR KUB/Abdomen 1 view CLINICAL HISTORY: 42 years-old Male presenting with ureteral stones. TECHNIQUE: Single supine view of the abdomen was obtained. COMPARISON: CT from earlier today. FINDINGS: Interval placement of a left ureteral stent. Previously noted calculus in the mid to distal left uret er may be apparent though the presence of 2 similar appearing phleboliths in the left hemipelvis make s its identification difficult. The lower pole left renal calculi evident on CT are not immediately a pparent allowing for bowel gas and stool. Surgical clips project over the right nephrectomy bed. Nonobstructive bowel gas pattern. Degenerative changes of the spine. Lung bases clear. IMPRESSION: 1. Interval placement of a left ureteral stent. Left pelvic phleboliths degraded identification of t he mid to distal left ureteral calculus. Attention to the left hemipelvis on follow-up. Electronically signed by: Jono Casas M.D. 06/16/2018 4:01 PM
--- NOTE | 2018-06-16 22:36 | Operative Report ---
DATE OF OPERATION: 06/16/2018 PREOPERATIVE DIAGNOSES: Left renal stone and solitary kidney. POSTOPERATIVE DIAGNOSES: Same. SURGEON: Sulaiman Shipman MD ANESTHESIA: General. PROCEDURE: Urethral dilation, meatal dilation, cystoscopy, left retrograde, attempted ureteroscopy, balloon dilation of ureter, and left stent placement. 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 He had an obstructed kidney and was anuric. His creatinine has risen some and so we elected to take him to the operating room. I was going to attempt to do ureteroscopy on the more distal of the 2 stones, one is in his kidney, nonobstructing. It was in the lower pole. I told him that if I was unable to get easily to the stone, however, I will displace the stone. DESCRIPTION OF THE PROCEDURE: The patient was taken to the cysto suite where general anesthesia was administered. He was placed in the dorsal lithotomy position and prepped and draped in the usual sterile fashion. I attempted to place a 22 cystoscope, was unable to get into the meatus, was able to dilate with a 17 meatus, but was unable to dilate with a 21-Bolivian cystoscope. So I got the Suzanna sounds and dilated him to 24 Bolivian with some difficulty and was able to get a 21-Bolivian scope with some difficulty past the meatus. There were no strictures beyond the meatus. The prostate was minimally obstructing. Once inside the bladder, the left ureteral orifice was visualized. A left retrograde was performed and there appeared to be obstruction 3 centimeters above the meatus. I was then able to pass a guidewire up into the renal pelvis on the left side under fluoroscopy. I removed the cystoscope and passed a semi-rigid ureteroscope up to a narrow area about 3 cm in. It appeared to be where the stone had been hung up, but I could not advance the scope beyond this area. I did try to use a passport balloon to dilate the ureteral opening, but again with that I was unable to even with 10 atmospheres and what appeared to be a dilation under fluoroscopy, was unable then to advance the ureteroscope beyond this area easily. Because he has a solitary kidney, I did not want to be overly aggressive at this setting. I did pass then a 6-Bolivian 26-cm stent with a loop for comfort. The position appeared to be good under fluoroscopy and did have to work to get the loop completely out of the prostatic urethra into the bladder, but finally did. At the end of the procedure, the patient was transferred to the recovery room in stable condition. There did appear to be a lot of debris coming out of the ureter once I passed the guidewire. The patient again was transferred to the recovery room in stable condition. There did appear to be a small torres stone fragment in the bladder and I am somewhat suspicious that he may have uric acid and did order a KUB to see if we could visualize the stones postoperatively. I attest to the content of the Intraoperative Record and any orders documented therein. Any exception s are noted below.
[2018-06-17] MEDS: ACETAMINOPHEN 1,000 MG/100 ML VIAL IV PRN (03:25)
[2018-06-17] MEDS: SODIUM CHLORIDE 0.45 % 1,000 ML IV SCH (03:29)
[2018-06-17 05:06] LABS: Hematocrit (blood only) 40.1 % (42-52); Hemoglobin 13.4 g/dL (14.0-18.0); Mean Corpuscular Hgb Conc 33.4 g/dL (32-36); Mean Corpuscular Volume 85.1 fL (80-100); Mean Platelet Volume 10.3 fL (7.4-10.4); Platelet Count 198 K/uL (130-400); RDW Standard Deviation 44.3 fL (36.4-46.3); Red Blood Count 4.71 M/uL (4.7-6.1); White Blood Count 14.52 K/uL (4.8-10.8)
[2018-06-17 05:35] LABS: BUN Creatinine Ratio 14.5 (10-20); Calcium 8.7 mg/dl (8.5-10.1); Creatinine Clr Calc Pharmacy 110.1 ml/min; Est GFR (African American) 99.4; Est GFR (Non-African American) 85.8; Potassium 4.1 mmol/L (3.5-5.1)
--- NOTE | 2018-06-17 08:05 | XRay Report ---
KUB HISTORY: Follow-up study in a patient with renal calculus and left ureteral stent ureteral stone COMPARISON: KUB 06/16/2017, CT 06/16/2017. FINDINGS: The bowel gas pattern is non-obstructive. There is no organomegaly. Surgical clips project over the right paracentral abdomen. Left ureteral stent appears to be in satisfactory positioning. T here are 3 left pelvic basin calcifications which appear unchanged. This includes a 4 mm calcificatio n adjacent to the stent. No definite nephrolithiasis. No pneumoperitoneum or pneumatosis. No fracture . IMPRESSION: 1. Satisfactory stable positioning of the left ureteral stent. 2. Left pelvic basin calcifications are noted including a 4 mm calcification adjacent to the distal s tent suggestive of a calculus versus phlebolith. Electronically signed by: Sin Wilks M.D. 06/17/2018 8:03 AM
[2018-06-17] MEDS ORDERED: TRAMADOL HCL 50 MG TABLET PO PRN (08:27)
[2018-06-17] MEDS: FAMOTIDINE 20 MG in SYRINGE 3 ML IV SCH (08:43)
[2018-06-17] MEDS ORDERED: CEROVITE ADV FORMULA TAB PO SCH (09:00)
[2018-06-17] MEDS ORDERED: PANTOprazole 40 MG TAB PO SCH (09:00)
[2018-06-17] MEDS ORDERED: PHENAZOPYRIDINE HCL 200 MG TAB PO PRN (09:47)
--- NOTE | 2018-06-17 09:49 | Urology Progress Note ---
Date of Service June 17, 2018 reviewed kub with radiology and appears what they suspected as stone in the distal ureteris likely phleboliths. Cannot clearly see renal calculi .Suspect uric acid stones . Creatinine normal at 1.07 today . Assessment & Plan (1) Calculus of distal left ureter: Add Tamsulosin & Pyridium for stent comfort. Outpatient URO follow up arranged tomorrow, 06/18 @ 11:40am with Dr. Shipman. Consider alkalinizing urine today and as outpatient . Check uric acid level (2) Acute kidney injury: Physical Exam Vital Signs (Past 24 Hours): Last Vital Signs Temp 36.8 C 06/17/18 07:13 Pulse 71 06/17/18 07:13 Resp 16 06/17/18 07:13 BP 143/82 H 06/17/18 07:13 Pulse Ox 99 06/17/18 07:13
[2018-06-17] MEDS ORDERED: TAMSULOSIN HCL 0.4 MG CAP PO ONE (10:00)
[2018-06-17] MEDS ORDERED: CIPROFLOXACIN 500 MG TAB PO SCH (10:45)
[2018-06-17] MEDS ORDERED: POTASSIUM CITRATE 10 MEQ TAB PO SCH (15:00)
--- NOTE | 2018-06-17 15:55 | Discharge Summary ---
Date of Service June 17, 2018 Admission HPI Per Admitting Provider The patient is a 42-year-old male with past medical history including a right nephrectomy and right orchiectomy at age 15 due to tumor, with no previous history of kidney stones, who had recently changed his diet to the whole 30 diet. Workup in the emergency department included laboratories and imaging studies. WBC was elevated at 13.34, creatinine was increased to 1.72, and CT of abdomen pelvis showed an obstructing 6 mm left ureteral stone and left kidney and ureter infiltration, and also demonstrated right nephrectomy. Admission Exam Per Admitting Provider The patient is awake, alert and oriented 3, well developed and well nourished, normocephalic and atraumatic, lying in bed and in mild acute distress secondary to pain. HEENT--PERRL, EOMI, mucous membranes and oropharynx dry. Neck--supple. No JVD. No bruits. Thyroid normal, trachea midline, no adenopathy. Heart--normal S1 and S2. No murmurs, rubs or gallops. Lungs--clear bilaterally, no respiratory distress, no accessory muscle use. Abdomen--normal bowel sounds and soft. Nontender. Nondistended. Obese. Extremities--no cyanosis or clubbing. No edema. There are good distal pulses b/l. Dermatologic--normal skin turgor, normal color, no abnormal lymph nodes, no rash. Neurologic--cranial nerves II through XII grossly intact. Rheumatologic--normal range of motion. Psychiatric--normal affect. Principal Diagnosis Calculus of distal left ureter Discharge Exam General: Resting comfortably in no apparent distress; A&OX3 HEENT: NC/AT; PERRLA with EOMI; [place] conjunctiva, MMM. N Neck: Supple and nontender Cardiac: RRR w/o murmurs, gallops or rubs Lungs: CTA bilaterally; No rhonchi, wheezing, or rales Abdomen: Bowel normoactive X 4; Nontender to palpation Extremities: Warm. No edema present Neuro: No focal weakness Skin: No rash Discharge Data Allergies Allergy/AdvReac Type Severity Reaction Status Date / Time cefaclor Allergy Intermediate RASH Unverified 06/16/18 05:54 erythromycin base Allergy Intermediate RASH Unverified 06/16/18 05:54 Penicillins Allergy Intermediate RASH Unverified 06/16/18 05:54 Consultations 06/16/18 05:27 ED Decision to Admit Stat 06/16/18 07:27 Consult Case Management - Discharge Planning Routine Consult Urology Routine 06/16/18 09:36 Consult Lung Nodule Program Routine Procedures Performed Operation Date: 06/16/18 11:00 Actual Procedures p Cystoscopy, attempted left ureteroscopy, balloon dilatation, stent placement left ureter(Left) - Sulaiman Shipman MD Ordered Studies 06/16/18 04:35 CT abd pelvis wo con Urgent 06/16/18 10:30 FL retrograde includes kub Routine KUB 06/16 and 06/17 Hospital Course (1) Calculus of distal left ureter: Pt. presented with distal left obstructing ureter stone. He received IV fluids in the ER and was NPO except meds. IV fluids were continued at 125 cc/hr. Cipro was ordered q12hr for empiric coverage. Tylenol and Dilaudid were ordered for pain. Urology was consulted and completed a urethral dilation, cystoscopy and left stent placement on 06/16/18. Abd pain significantly improved following procedure. Potassium citrate 10 mEq BID was added for urine alkalinization. Pyridium and Flomax were added POD#1. Uric acid level was elevated at 8.6. Script for Oxycodone 5 mg q6hr, Disp: 12 was provided at discharge. He will follow up with urology on 06/18/18. Script for CBC was provided due to increased leukocytosis, will need to be monitored in 1-2 days. (2) Acute kidney injury: - Creatinine increased to 1.7 in setting of obstructive stone. Renal function improved to 1.0 following stent placement. (3) H/O right nephrectomy: Patient reports history of right nephrectomy at the age of 4 due to Wilms tumor and right orchiectomy at age 15. (4) H/O unilateral orchiectomy: As noted above. (5) Obesity: BMI 41.9 kg. Encouraged weight loss. (6) Hurthle cell neoplasm of thyroid: Thyroid ultrasound performed on 05/30/18 showed a multinodular thyroid gland with a dominant solid hypoechoic 1.9 cm nodule within the lower pole of the left lobe. He then underwent aspiration of the nodule on 05/30/18. Pathology has been read as findings suspicious for a Hurthle Cell neoplasm, for which he has an appointment to see a [facility] coming in to [facility] on Sunday 06/18. (7) Pulmonary nodules: Multiple solid pulmonary nodules measuring up to 6 mm. Will need follow up with reimaging per Anthony criteria. Pulmonary nodule program consulted. Patient reports these were also seen on PET scan 4 years ago. (8) DVT prophylaxis: SCDs were ordered. Patient was stable for discharge to home on 06/17/18. Will follow up with urology on 06/18/18. Total Time Total Time Spent Total Time Spent (In Minutes): >30 minutes Total Time Includes: Examination of the Patient, Discharge Planning, Medication Reconciliation, Communication With Other Providers and Other Discharge Plan Discharge Items Patient Disposition: Home - Self-Care Reason For Visit: L OBSTR URETERAL STONE Discharge Diagnosis: Calculus of Left Ureter s/p stent placement Condition: Good Discharge Goals: Decrease discomfort, Diagnostic testing, Improve disease control, Improve function, Increase independence and Therapeutic intervention Activity: As commented below Lifting: Wait until after follow-up appointment Sexual Activity: Wait until after follow-up appointment Exercise/Sports: Wait until after follow-up appointment Non-emergency contact: Primary Care Provider and Urologist Call non-emergency contact if: you have any medication questions, your symptoms worsen, your pain is not controlled, your pain is worsening, your pain is unus ual for you, your pain is concerning for you and you have a fever Follow-up/Referrals: Myrna Diaz DO [Primary Care Provider] - Diet: Regular Other Ambulatory Orders: Complete Blood Count with Diff (Timed) Timeframe: 2 Days Location: Determined by Patient Ordered By: Hayde White Provider Instructions: 1. Calculus of left distal ureter * Please follow up with urology as scheduled on 06/18/18 at 11:40 am (office location: [id number]) * Please continue Ciprofloxacin 500 mg twice daily to complete a 3 day course (first dose this evening, last dose on 06/19/18) * Please continue Pyridium up to three times daily for suprapubic pain. * Please continue Flomax 0.4 mg daily. * Please take Potassium citrate 10 mEq twice daily for urine alkalinization. * Prescriptions for Flomax, Cipro, Potassium citrate and Pyridium were sent to [facility]. Pyridium can also be purchased over the counter. 2. Hurthle cell neoplasm of the thyroid * Please follow up with [facility] as scheduled on 06/18/18. 3. Pulmonary Nodules * You will need follow up chest imaging in the future to evaluate for progression of nodules. Prescriptions: New ciprofloxacin HCl 500 mg Tablet 500 mg PO BID Qty: 5 RF: 0 tamsulosin 0.4 mg Capsule 0.4 mg PO QAM 30 Days Qty: 30 RF: 0 potassium citrate 10 mEq (1,080 mg) tablet extended release 10 meq PO BID Qty: 20 RF: 0 oxycodone 5 mg capsule 5 mg PO Q6H PRN (Reason: pain) Qty: 12 RF: 0 Continued cyclobenzaprine 10 mg Tablet 10 mg PO HS PRN (Reason: Back Pain) RF: 0 Prilosec OTC 20 mg Tablet,Delayed Release (Dr/Ec) 20 mg PO QAM RF: 0 Centrum 18-400 mg-mcg Tablet 1 tab PO DAILY RF: 0 Stand-Alone Forms: Call Back Authorization, [facility]/Other Patient Handouts: Tamsulosin Hydrochloride Oral capsule, Phenazopyridine Hydrochloride Oral tablet Discharge Orders: Discharge Order (Routine); Ordered 06/17/18 Ordered By: Aura Astorga Admission Data Admit Date/Time: 06/16/18 06:12 Attending Provider: Aura Astorga Admit Provider: [facility] Primary Care Provider: Myrna Diaz Other Providers: Sulaiman Shipman ; [facility] Service: Surgical Services Other Interventions: Discharge Summary Assessment (RN) Last Done: 06/17/18 14:06 Pending Studies at Discharge: Yes Studies:: Urine culture: negative to date (prelim) DC Date/Time DO NOT enter until pt leaves facility: 06/17/18 16:30 Supervising Physician Co-Signing Physician Notes PA Supervision Note: I personally saw and examined the patient. I verified all larios points and agree with JIMENEZ Boland with the following exceptions and/or additions: Pt feeling very well, minimal pain, controlled. Discussed possibility of uric acid stone and alkalinazation of urine as per Urology recommendations. Will need f/u on stone analysis if can catch stone upon discharge. Has f/u with Urology tomorrow planned. Ideally would need 24 hr urine and workup for stones. NAD, AAOx3 RRR no mgr CTAB no wcr Abd +BS soft NT ND Ext no edema Stable for dc to home after left ureterolithiasis with obstruction and MARYCARMEN, now resolved. Check CBC, BMP in a few days
[2018-06-18] MEDS ORDERED: TAMSULOSIN HCL 0.4 MG CAP PO SCH (09:00)
== END 2018-06-17 16:30 | disposition home or self-care (01) | DRG 660 ==
LOC: ED 03:30 → 3W 06:12 → SUATTDRO 06:12 → 3W 07:10

== ENCOUNTER 2020-10-07 09:48 | Observation (INO) ==
[2020-10-07] MEDS ORDERED: MoRPHine SULFATE 4 MG/ML 1 ML CARP\\VIAL IV PRN (10:08)
[2020-10-07] MEDS ORDERED: SODIUM CHLORIDE 0.9% 1000ML 1,000 ML IV STA (10:08)
[2020-10-07] MEDS ORDERED: TAMSULOSIN HCL 0.4 MG CAP PO ONE ×2 (10:08→12:33)
[2020-10-07] MEDS ORDERED: ONDANSETRON INJ 2 MG/ML 2 ML VIAL IV STA (10:08)
[2020-10-07 10:19] LABS: Basophils # (auto) 0.05 K/uL (0-0.2); Basophils % (auto) 0.5 %; Eosinophils # (auto) 0.51 K/uL (0-0.5); Eosinophils % (auto) 4.9 %; Hematocrit (blood only) 44.8 % (42-52); Hemoglobin 14.8 g/dL (14.0-18.0); Immature Granulocytes # (auto) 0.05 K/uL (0.00-0.02); Immature Granulocytes % (auto) 0.5 %; Lymphocytes # (auto) 1.67 K/uL (1.2-3.4); Lymphocytes % (auto) 16.2 %; Mean Corpuscular Hemoglobin 29.2 pg (25-34); Mean Corpuscular Volume 88.4 fL (80-100); Monocytes # (auto) 0.74 K/uL (0.11-0.59); Monocytes % (auto) 7.2 %; Neutrophils # (auto) 7.29 K/uL (1.4-6.5); Neutrophils % (auto) 70.7 %; Platelet Count 253 K/uL (130-400); RDW Coefficient of Variation 14.6 % (11.5-14.5); RDW Standard Deviation 47.2 fL (36.4-46.3); Red Blood Count 5.07 M/uL (4.7-6.1); White Blood Count 10.31 K/uL (4.8-10.8)
--- NOTE | 2020-10-07 10:24 | Emergency Department Note ---
Impression & Plan Renal colic on left side, Hydronephrosis ED Provider Note NAME: DEMIAN POON AGE: 45 SEX: M : 1975 ARRIVES VIA: Walk-In INFORMANT: Patient, ED PROVIDER(S): Dustin Verma DO CHIEF COMPLAINT: Flank pain HPI: The patient is a 45-year-old male who has unilateral kidney because of a remote history of Wilms tumor who presented to the emergency department with left flank pain. The patient has a history of uric acid stones. He states he started having vague pain in his left flank yesterday which progressed to severe pain today. He notices very severe pain in his left flank which radiates around to his left lower abdomen. He has had similar episodes in the past with kidney stones. He did take Tylenol without relief. He called his primary urologist and was referred to the emergency department for further evaluation. The patient describes nausea but no vomiting. He has noticed some hematuria as well. He states the pain is moderate to severe. He states it does worsen with movement. He denies having any fever. He has had no vomiting. ROS: See above HPI for pertinent positives & negatives. A total of 10 systems reviewed and were otherwise negative. PAST MEDICAL HISTORY: See Below PAST SURGICAL HISTORY: See Below FAMILY HISTORY: See Below SOCIAL HISTORY: See Below HOME MEDICATIONS: See Below ALLERGIES: See Below VITALS: See Below PHYSICAL EXAMINATION: GENERAL: The patient is awake and alert. The patient is very anxious appearing appears to be uncomfortable. EYES: The conjunctivae are clear. The pupils are round and reactive. EARS, NOSE, MOUTH AND THROAT: The nose is without any evidence of any deformity. NECK: The neck is nontender and supple. RESPIRATORY: Normal respiratory effort is noted there is no evidence of wheezing rhonchi or rales CARDIOVASCULAR: Regular rate and rhythm noted there no murmurs rubs or gallops normal S1 normal S2. GASTROINTESTINAL: The abdomen is soft. Abdomen is nontender. BACK: There is no midline tenderness to palpation. Significant left CVA tenderness was noted to percussion. MUSCULOSKELETAL/EXTREMITIES: There is no evidence of gross deformity full range of motion is noted in the hips and shoulders. SKIN: There is no obvious evidence of any rash. There are no petechiae, pallor or cyanosis noted. NEUROLOGIC: Patient is awake alert and oriented x3. MEDICAL DECISION MAKING: The patient is a 45-year-old male who presented to the emergency department for an evaluation of left leg pain. The patient had very severe left flank pain. The patient has a history of kidney stones but also has unilateral kidney because of previous history of Wilms tumor. The patient was treated with IV fluids and IV pain medication he was reevaluated multiple times. Ultimately he was found to have a large ureteral calculus with obstruction. I was concerned given the patient having a unilateral kidney he may require intervention. For this reason I discussed his case with the on-call urology group. They have agreed to evaluate the patient in the emergency department for further managem ent and disposition. I discussed his case with the on-call [facility] hospitalist group. They have agreed to evaluate the patient in the emergency department as well. Triage Nursing notes reviewed. Prior medical records reviewed Vital Signs: reviewed and remarkable for elevated blood pressure. Differential diagnosis: Renal colic, UTI, appendicitis, diverticulitis, mesenteric ischemia, aortic pathology, infections, inflammatory bowel disease, PUD, biliary pathology, as well as other pathologies. ER treatment provided: See below Diagnostics interpreted by me: ECG: none Laboratory studies: As stated above and show below. Imaging studies: See below Consultation(s): 1200: I discussed this case with Hayde who is on-call for the urology group. Milagros mckeon will evaluate the patient for possible stent. 1215: I discussed this case with Иван who is on-call for the [facility]. They will evaluate the patient in the emergency department. Past Med/Surg History Medical History (Updated 10/07/20 @ 16:57 by Dustin Verma DO) Acid reflux MARYCARMEN (acute kidney injury) Anxiety Calculus of distal left ureter Chronic back pain R/T INJURY Difficult airway for intubation Dyslipidemia Encounter for pre-operative examination History of ASCVD (atherosclerotic cardiovascular disease) History of Wilms' tumor HTN (hypertension) Hurthle cell neoplasm of thyroid Kidney stones Morbid (severe) obesity due to excess calories Pulmonary nodule Urinary calculi Wilm's tumor of right kidney WITH CHEMO AND RADIATION (1978) Surgical History H/O right nephrectomy secondary to Wilms Tumor H/O unilateral orchiectomy RIGHT, undescended History of cystoscopy WITH STENT INSERTION S/P complete thyroidectomy (11/08/18) 11/08/2018 S/P partial thyroidectomy (09/23/18) Left S/P vasectomy Family History Mother Asthma Hypertension Father Myocardial infarction, Onset Age: 69 Hypertension Coronary heart disease Social History Smoking Status: Never smoker Second Hand Exposure: Yes; Hx Alcohol Use: Yes Alcohol type: beer, wine and hard liquor Alcohol Intake Frequency Comment: Rarely Hx Substance Use: No Preferred Language: Serbian Communication Ability: Effective Kindergarten Tutor Required: No Beliefs That Will Affect Care: None marital status: Current Living Situation: Family current occupational status: employed 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 How many Children do You have: 1 Feels Safe at Home: Yes Dental Care, Regularly: Yes Assistive Devices: None Allergies Allergies Allergy/AdvReac Type Severity Reaction Status Date / Time cefaclor Allergy Intermediate RASH Verified 10/07/20 11:15 erythromycin base Allergy Intermediate RASH Verified 10/07/20 11:15 Penicillins Allergy Intermediate RASH Verified 10/07/20 11:15 Home Meds Home Medications Medication Instructions Recorded Confirmed acetaminophen 500 mg tablet 1,000 mg PO Q6H PRN 10/07/20 10/07/20 (Tylenol Extra Strength) Previous Rx's Medication Instructions Recorded levothyroxine 175 mcg capsule 175 mcg PO DAILY #30 cap 03/23/19 allopurinol 300 mg tablet 300 mg PO DAILY #90 tab 12/24/20 potassium citrate 10 mEq (1,080 10 meq PO DAILY #90 tab 1015/20 mg) tablet,extended release Results & Data (ED) Vital Signs Vital Signs - 24 hr 10/07/20 09:57 10/07/20 11:48 Temperature 36.6 C Temperature Source Temporal Artery Scan Pulse Rate 67 Pulse Rate [Right Finger] 83 Respiratory Rate 18 18 Respiratory Effort / Characteristics Non-Labored Spontaneous Non-Labored Respiratory Depth Normal Normal Respiratory Pattern Regular Regular Blood Pressure 179/107 H Blood Pressure [Right Arm] 177/107 H Blood Pressure Mean 131 Blood Pressure Mean [Right Arm] 130 Blood Pressure Position Sitting Pulse Oximetry 99 94 Oxygen Delivery Method Room Air Room Air Sepsis Recent Fever Within 48 Hours No Sepsis New/Unexplained Change in Mental Status N/A Sepsis Action Taken by Nursing No Action Required Home Medications Current Medication List: was personally reviewed by me Laboratory Data Attestation: I reviewed the patient's lab results. Result diagrams: 10/07/20 10:10 10/07/20 10:10 Lab Results 10/07/20 10/07/20 10/07/20 Range/Units 10:10 10:10 11:51 WBC 10.31 (4.8-10.8) K/uL RBC 5.07 (4.7-6.1) M/uL Hgb 14.8 (14.0-18.0) g/dL Hct 44.8 (42-52) % MCV 88.4 (80-100) fL MCH 29.2 (25-34) pg MCHC 33.0 (32-36) g/dL RDW Std Deviation 47.2 H (36.4-46.3) fL RDW Coeff of Bibi 14.6 H (11.5-14.5) % Plt Count 253 (130-400) K/uL MPV 10.0 (7.4-10.4) fL Immature Gran % (Auto) 0.5 % Neut % (Auto) 70.7 % Lymph % (Auto) 16.2 % Webster % (Auto) 7.2 % Eos % (Auto) 4.9 % Baso % (Auto) 0.5 % Neut # (Auto) 7.29 H (1.4-6.5) K/uL Lymph # (Auto) 1.67 (1.2-3.4) K/uL Webster # (Auto) 0.74 H (0.11-0.59) K/uL Eos # (Auto) 0.51 H (0-0.5) K/uL Baso # (Auto) 0.05 (0-0.2) K/uL Immature Gran # (Auto) 0.05 H (0.00-0.02) K/uL Sodium 137 (136-145) mmol/L Potassium 4.3 (3.5-5.1) mmol/L Chloride 110 H (98-107) mmol/L Carbon Dioxide 20 L (21-32) mmol/L Anion Gap 7.0 (3-11) BUN 18 (7-18) mg/dl Creatinine 1.19 (0.6-1.4) mg/dl Est Cr Clr Drug Dosing 104.1 ml/min Est GFR ( Amer) 85.6 ml/min Est GFR (Non-Af Amer) 73.8 ml/min BUN/Creatinine Ratio 15.0 (10-20) Glucose 109 H (70-99) mg/dl Calcium 8.6 (8.5-10.1) mg/dl Total Bilirubin 0.5 (0.2-1) mg/dl AST 35 (15-37) U/L ALT 48 (12-78) U/L Alkaline Phosphatase 69 (45-117) U/L Total Protein 7.8 (6.4-8.2) gm/dl Albumin 4.0 (3.4-5.0) gm/dl Globulin 3.8 (2.5-4.0) gm/dl Albumin/Globulin Ratio 1.1 (0.9-2) Lipase 109 (73-393) U/L COVID-19 Eval Order Covid19 at [facility] SARS-CoV-2 (PCR) (Negative) 10/07/20 Range/Units 11:51 WBC (4.8-10.8) K/uL RBC (4.7-6.1) M/uL Hgb (14.0-18.0) g/dL Hct (42-52) % MCV (80-100) fL MCH (25-34) pg MCHC (32-36) g/dL RDW Std Deviation (36.4-46.3) fL RDW Coeff of Bibi (11.5-14.5) % Plt Count (130-400) K/uL MPV (7.4-10.4) fL Immature Gran % (Auto) % Neut % (Auto) % Lymph % (Auto) % Webster % (Auto) % Eos % (Auto) % Baso % (Auto) % Neut # (Auto) (1.4-6.5) K/uL Lymph # (Auto) (1.2-3.4) K/uL Webster # (Auto) (0.11-0.59) K/uL Eos # (Auto) (0-0.5) K/uL Baso # (Auto) (0-0.2) K/uL Immature Gran # (Auto) (0.00-0.02) K/uL Sodium (136-145) mmol/L Potassium (3.5-5.1) mmol/L Chloride (98-107) mmol/L Carbon Dioxide (21-32) mmol/L Anion Gap (3-11) BUN (7-18) mg/dl Creatinine (0.6-1.4) mg/dl Est Cr Clr Drug Dosing ml/min Est GFR ( Amer) ml/min Est GFR (Non-Af Amer) ml/min BUN/Creatinine Ratio (10-20) Glucose (70-99) mg/dl Calcium (8.5-10.1) mg/dl Total Bilirubin (0.2-1) mg/dl AST (15-37) U/L ALT (12-78) U/L Alkaline Phosphatase (45-117) U/L Total Protein (6.4-8.2) gm/dl Albumin (3.4-5.0) gm/dl Globulin (2.5-4.0) gm/dl Albumin/Globulin Ratio (0.9-2) Lipase (73-393) U/L COVID-19 Eval Order SARS-CoV-2 (PCR) NEGATIVE (Negative) Administered Medications Acetaminophen (Acetaminophen 500 Mg Tab) 1,000 mg PO Q6H PRN PRN Reason: Fever Or Pain Stop: 11/06/20 17:31 Last Admin: 10/08/20 07:46 Dose: 1,000 mg Documented by: [id number] Admin: 10/07/20 19:40 Dose: 1,000 mg Documented by: [id number] Lactated Ringer's (Lr) 1,000 mls @ 100 mls/hr IV .Q10H BRAD Stop: 11/06/20 13:00 Last Admin: 10/08/20 04:05 Dose: 100 mls/hr Documented by: [id number] Infusion: 10/08/20 03:58 Dose: 100 mls/hr Documented by: [id number] Admin: 10/07/20 17:58 Dose: 100 mls/hr Documented by: [id number] Levothyroxine Sodium (Levothyroxine Sodium 175 Mcg Tablet) 175 mcg PO DAILYBB BRAD Stop: 11/07/20 06:29 Last Admin: 10/08/20 06:17 Dose: 175 mcg Documented by: [id number] Morphine Sulfate (Morphine Sulfate 2 Mg/Ml Carp) 2 mg IV Q4 PRN PRN Reason: Pain Stop: 10/21/20 17:31 Last Admin: 10/07/20 19:40 Dose: 2 mg Documented by: [id number] Discontinued Medications Diatrizoate Meglumine (Diatrizoate Meglumine 30% 100ml Vial) 100 ml INSTIL ONCE ONE Stop: 10/07/20 16:17 Last Admin: 10/07/20 16:47 Dose: 60 ml Documented by: [id number] Hydromorphone HCl (Hydromorphone Inj 1 Mg/Ml Syringe) 1 mg IV Q30M PRN PRN Reason: Pain Stop: 10/21/20 11:23 Last Admin: 10/07/20 15:43 Dose: 1 mg Documented by: [id number] Admin: 10/07/20 11:44 Dose: 1 mg Documented by: [id number] Hydromorphone HCl (Hydromorphone Inj 2 Mg/Ml Syr/Vial) Confirm Administered Dose 2 mg .ROUTE .STK-MED ONE Stop: 10/07/20 15:35 Last Admin: 10/07/20 18:49 Dose: Not Given Documented by: [id number] Sodium Chloride (Nss 1000ml) 1,000 mls @ 999 mls/hr IV .Q1H1M STA Stop: 10/07/20 11:08 Last Infusion: 10/07/20 11:19 Dose: 0 mls/hr Documented by: [id number] Admin: 10/07/20 10:15 Dose: 999 mls/hr Documented by: [id number] Ceftriaxone Sodium (Rocephin) 1,000 mg in 50 mls @ 100 mls/hr IV NOW STA Stop: 10/07/20 13:32 Last Infusion: 10/07/20 14:19 Dose: 0 mls/hr Documented by: [id number] Admin: 10/07/20 13:34 Dose: 100 mls/hr Documented by: [id number] Morphine Sulfate (Morphine Sulfate 4 Mg/Ml 1 Ml Carp\Vial) 4 mg IV Q15M PRN PRN Reason: Pain Stop: 10/21/20 10:07 Last Admin: 10/07/20 10:16 Dose: 4 mg Documented by: [id number] Ondansetron HCl (Ondansetron Inj 2 Mg/Ml 2 Ml Vial) 4 mg IV NOW STA Stop: 10/07/20 10:09 Last Admin: 10/07/20 10:16 Dose: 4 mg Documented by: [id number] Tamsulosin HCl (Tamsulosin Hcl 0.4 Mg Cap) 0.4 mg PO NOW ONE Stop: 10/07/20 10:09 Last Admin: 10/07/20 10:18 Dose: 0.4 mg Documented by: [id number] Tamsulosin HCl (Tamsulosin Hcl 0.4 Mg Cap) 0.4 mg PO NOW ONE Stop: 10/07/20 12:34 Last Admin: 10/07/20 13:34 Dose: Not Given Documented by: [id number] Imaging Data Radiologist's Impression: Abdomen/Pelvis CT 10/07/20 10:[address] WITHOUT CONTRAST CT DOSE: 1622.47 mGy.cm HISTORY: left flank pain TECHNIQUE: Multiaxial CT images of the abdomen and pelvis were performed without contrast. A dose lowering technique was utilized adhering to the principles of ALARA. COMPARISON STUDY: Abdomen and pelvis CT 06/25/2020. FINDINGS: There are few subcentimeter nodules again noted within the right lung base. These remain unchanged. Dominant nodule within the right middle lobe on image 36 measures 5 mm. No pneumoperitoneum. No pneumatosis. No fractures within the visualized osseous structures. Small fat-containing right inguinal hernia, unchanged. Hepatomegaly demonstrating fatty change. This is similar to the prior study. The unenhanced spleen, right adrenal gland, pancreas, and gallbladder are unremarkable. Prior right nephrectomy. Stable 2.5 cm left adrenal gland nodule. Mild left perinephric edema. Multiple small stones seen throughout the left kidney. There is also an 8 mm stone at the left ureteropelvic junction resulting in moderate left hydronephrosis. The bladder is decompressed but appears unremarkable. No retroperitoneal or pelvic lymphadenopathy. Normal caliber a bdominal aorta. Stable scarring within the right anterior abdominal wall. Suboptimal evaluation for bowel pathology due to the lack of intravenous and oral contrast. However, there is no definite bowel wall thickening or obstruction. The visualized appendix is unremarkable. IMPRESSION: 1. An 8 mm obstructing stone at the left ureteropelvic junction resulting in moderate left hydronephrosis. 2. Left-sided nephrolithiasis. 3. Hepatic steatosis. 4. Prior right nephrectomy. 5. Stable 2.5 cm left adrenal gland nodule. 6. Stable subcentimeter nodules within the right lung base. ACT 112: Negative or not required by law. Electronically signed by: Pieter Valle M.D. 10/07/2020 11:02 AM Discharge Plan Visit Data Chief Complaint: Flank Pain Stated Complaint: PAIN ON LEFT SIDE ED Provider: Dustin Verma Discharge Problem: Renal colic on left side, Hydronephrosis Patient Disposition: Admitted As Inpatient Condition: Good Discharge Instructions Interventions: ED Discharge Assessment Last Done: 10/07/20 14:24 Discharge Problem: Hydronephrosis Qualifiers: Hydronephrosis type: with ureteral calculous obstruction Qualified Code(s): N13.2 - Hydronephrosis with renal and ureteral calculous obstruction
[2020-10-07 10:35] LABS: Calcium 8.6 mg/dl (8.5-10.1); Creatinine Clr Calc Pharmacy 104.1 ml/min; Est GFR (African American) 85.6 ml/min; Est GFR (Non-African American) 73.8 ml/min; Potassium 4.3 mmol/L (3.5-5.1)
[2020-10-07 10:38] LABS: Albumin Globulin Ratio 1.1 (0.9-2); Bilirubin,Total 0.5 mg/dl (0.2-1); Globulin 3.8 gm/dl (2.5-4.0); Total Protein 7.8 gm/dl (6.4-8.2)
--- NOTE | 2020-10-07 11:04 | CT Scan Report ---
ABDOMEN AND PELVIS CT WITHOUT CONTRAST CT DOSE: 1622.47 mGy.cm HISTORY: left flank pain TECHNIQUE: Multiaxial CT images of the abdomen and pelvis were performed without contrast. A dose lo wering technique was utilized adhering to the principles of ALARA. COMPARISON STUDY: Abdomen and pelvis CT 06/25/2020. FINDINGS: There are few subcentimeter nodules again noted within the right lung base. These remain un changed. Dominant nodule within the right middle lobe on image 36 measures 5 mm. No pneumoperitoneum. No pneumatosis. No fractures within the visualized osseous structures. Small fat-containing right in guinal hernia, unchanged. Hepatomegaly demonstrating fatty change. This is similar to the prior study . The unenhanced spleen, right adrenal gland, pancreas, and gallbladder are unremarkable. Prior right nephrectomy. Stable 2.5 cm left adrenal gland nodule. Mild left perinephric edema. Multiple small st ones seen throughout the left kidney. There is also an 8 mm stone at the left ureteropelvic junction resulting in moderate left hydronephrosis. The bladder is decompressed but appears unremarkable. No r etroperitoneal or pelvic lymphadenopathy. Normal caliber abdominal aorta. Stable scarring within the right anterior abdominal wall. Suboptimal evaluation for bowel pathology due to the lack of intraveno us and oral contrast. However, there is no definite bowel wall thickening or obstruction. The visuali zed appendix is unremarkable. IMPRESSION: 1. An 8 mm obstructing stone at the left ureteropelvic junction resulting in moderate left hydronephr osis. 2. Left-sided nephrolithiasis. 3. Hepatic steatosis. 4. Prior right nephrectomy. 5. Stable 2.5 cm left adrenal gland nodule. 6. Stable subcentimeter nodules within the right lung base. ACT 112: Negative or not required by law. Electronically signed by: Pieter Valle M.D. 10/07/2020 11:02 AM
[2020-10-07] MEDS: HYDROmorphone INJ 1 MG/ML SYRINGE IV PRN ×2 (11:44→15:43)
--- NOTE | 2020-10-07 12:55 | Urology Consultation ---
Date of Consultation October 07, 2020 Assessment & Plan (1) Left ureteral stone: (2) Hydronephrosis, left: (3) History of nephrectomy, right: 45yo M admitted with intractable left flank pain and anuria secondary to a 8mm Left UPJ stone with hydronephrosis - Hx of right nephrectomy secondary to Wilms' tumor and uric acid nephrolithiasis - Afebrile, non-toxic appearing. - Labs reviewed, Wbc 10.31 and Cr 1.19 - Findings reviewed with Dr. Pozo - Given his hx of solitary kidney in the setting of an obstructing stone and anuria, will proceed to OR for Cystoscopy, left ureteral stent placement. Risks and benefits to be reviewed with patient by Dr. Pozo. OR notified. EKG in chart. Covid test negative. Patient given a dose of IV Rocephin in the ED. - Keep NPO - Continue supportive care - Expected clinical course reviewed with patient, he is agreeable to plan, all questions were answered. ATTENDING NOTE: Independently evaluated, assessed, examined, and interviewed. Agree with above. Solitary kidney with obstructing stone and decreased urine output. Concern for obstruction of solitary kidney. Discussed need for urgent intervention. Risks and benefits discussed at length for procedure. These include bleeding, infection, injury to surrounding tissues or organs, and risks associated with anesthesia. Patient states understanding and agrees to proceed. Will sign consent and proceed. Plan for cystoscopy and left stent. History of Present Illness Reason for Consultation: UPJ stone; Solitary kidney History of Present Illness 45yo M with a hx of right nephrectomy with intractable left flank pain and anuria secondary to a 8mm left UPJ stone with hydronephrosis. PMHx includes uric acid nephrolithiasis, Hx of Wilms' tumor s/p right nephrectomy, adrenal nodule, hx of orchiectomy, thyroidectomy, HTN, HLD, GERD, chronic back pain, pulmonary nodule, obesity, ASCVD, anxiety The patient presented to the ED today with complaints of acute onset of left flank pain that started last night. He reports the pain was sharp and worsened this morning on his way to work. He denies fevers, nausea, or vomiting. It was associated with some diarrhea. He also reports he was not able to void this morning and just had some dribbling with blood. He was last able to urinate around 0230 this morning and felt he had completely emptied his bladder at that time. A CTAP revealed an 8 mm obstructing stone at the left ureteropelvic junction resulting in moderate left hydronephrosis. He reports that he did have breakfast this AM around 730-[address] work. He is currently afebrile, Wbc 10.31, Hgb 14.8, Cr 1.19. Bladder scanned for 63ml. CTAP IMPRESSION: 1. An 8 mm obstructing stone at the left ureteropelvic junction resulting in moderate left hydronephrosis. 2. Left-sided nephrolithiasis. 3. Hepatic steatosis. 4. Prior right nephrectomy. 5. Stable 2.5 cm left adrenal gland nodule. 6. Stable subcentimeter nodules within the right lung base. Allergies Allergy/AdvReac Type Severity Reaction Status Date / Time cefaclor Allergy Intermediate RASH Verified 10/07/20 11:15 erythromycin base Allergy Intermediate RASH Verified 10/07/20 11:15 Penicillins Allergy Intermediate RASH Verified 10/07/20 11:15 Home Medications Medication Instructions Recorded Confirmed Type levothyroxine 175 mcg capsule 175 mcg PO DAILY #30 cap 03/23/19 10/07/20 Rx allopurinol 300 mg tablet 300 mg PO DAILY #90 tab 12/25/19 10/07/20 Rx potassium citrate 10 mEq (1,080 10 meq PO DAILY #90 tab 12/25/19 10/07/20 Rx mg) tablet,extended release acetaminophen 500 mg tablet 1,000 mg PO Q6H PRN 10/07/20 10/07/20 History (Tylenol Extra Strength) Patient History Medical History Acid reflux MARYCARMEN (acute kidney injury) Anxiety Calculus of distal left ureter Chronic back pain R/T INJURY Difficult airway for intubation Dyslipidemia Encounter for pre-operative examination History of ASCVD (atherosclerotic cardiovascular disease) History of Wilms' tumor HTN (hypertension) Hurthle cell neoplasm of thyroid Kidney stones Morbid (severe) obesity due to excess calories Pulmonary nodule Urinary calculi Wilm's tumor of right kidney WITH CHEMO AND RADIATION (1978) Surgical History H/O right nephrectomy secondary to Wilms Tumor H/O unilateral orchiectomy RIGHT, undescended History of cystoscopy WITH STENT INSERTION S/P complete thyroidectomy (11/08/18) 11/08/2018 S/P partial thyroidectomy (09/23/18) Left S/P vasectomy Family History Mother Asthma Hypertension Father Myocardial infarction, Onset Age: 69 Hypertension Coronary heart disease Social History Smoking Status: Never smoker Second Hand Exposure: Yes; Hx Alcohol Use: Yes Alcohol Intake Frequency Comment: Rarely Hx Substance Use: No Preferred Language: Occitan Communication Ability: Effective 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: No Beliefs That Will Affect Care: None marital status: Current Living Situation: Spouse current occupational status: employed 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 No visible rashes or lesions. Neurologic: awake Psychiatric: Orientation: alert, oriented x 3 and cooperative Genitourinary: + CVA tenderness (Left ) Results & Data ([facility]) Vital Signs (Past 12 Hours) Vital Signs Temp Pulse Pulse Resp BP BP Pulse Ox 10/07/20 11:48 83 18 177/107 H 94 10/07/20 09:57 36.6 C 67 18 179/107 H 99 PG Care Time/CCT Total # of Minutes Spent Total Time Spent with Patient: Total time spent is greater than 50% in coordination of care (as documented) at patient's floor/unit and/or counseling patient: Coding Level of Care Code 05961 Inpt Consult Level 4 Diagnoses Left ureteral stone N20.1 Hydronephrosis, left N13.30 History of nephrectomy, right Z90.5
[2020-10-07] MEDS ORDERED: cefTRIAXone SODIUM 1,000 MG/50 ML BAG IV STA (13:03)
--- NOTE | 2020-10-07 13:03 | History & Physical Report ---
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4 (3) Adrenal mass 1 cm to 4 cm in diameter: Plan: Known and stable, follows with Urology- 2.5 cm in June - 2.3cm in 2019 (4) HTN (hypertension): Plan: Appears well controlled when not in acute pain - Was previously on Lisinopril 10mg, this was discontinued (5) Anxiety: Plan: No acute needs patient denies outpatient treatment (6) Acid reflux: Plan: Will add on famotidine while in house (7) Hurthle cell neoplasm of thyroid: Plan: Follows with endocrine continue Synthroid 175 History of Present Illness Primary Care Provider: Myrna Diaz, DO 45 YOM with past medical history of: Wilms tumor with right. nephrectomy, renal stones, hemithyroidectomy and isthmusectomy in 2019, thyroid cancer with SHELDON ablation in 2019, adrenal gland nodule, HTN, GERD, HLD, anxiety. Patient comes to the emergency room today after acute onset of left flank pain that started last night, it was sharp and stabbing in nature and progressively got worse this morning. It was associated with some diarrhea, but no n/v. He came in for evaluation as he was not able to void this morning as he tried and just had some dribbling with blood. His last urination was around 0230 in the morning that was interrupted stream but felt he was able to empty his bladder. Int he EMD he had a CT scan of the abdomen and pelvis which revealed a, an 8 mm obstructing stone at the left ureteropelvic junction resulting in moderate left hydronephrosis. Urology was consulted via the EMD and is planned for surgical intervention today. Patient does not appear septic at this time, with no fevers. Awaiting urine sample, with bladder scan was 63ml. Patient will be admitted for pain control and urological intervention. Will keep NPO. Patient is not vaccinated for COVID 19 and his COVID test on admission is NEGATIVE Estimated risk probability for perioperative [place] or arrest is 0.04%. Allergies Allergy/AdvReac Type Severity Reaction Status Date / Time cefaclor Allergy Intermediate RASH Verified 10/07/20 11:15 erythromycin base Allergy Intermediate RASH Verified 10/07/20 11:15 Penicillins Allergy Intermediate RASH Verified 10/07/20 11:15 Home Medications Medication Instructions Recorded Confirmed Type levothyroxine 175 mcg capsule 175 mcg PO DAILY #30 cap 03/23/19 10/07/20 Rx allopurinol 300 mg tablet 300 mg PO DAILY #90 tab 12/25/19 10/07/20 Rx potassium citrate 10 mEq (1,080 10 meq PO DAILY #90 tab 12/25/19 10/07/20 Rx mg) tablet,extended release acetaminophen 500 mg tablet 1,000 mg PO Q6H PRN 10/07/20 10/07/20 History (Tylenol Extra Strength) Past Med/Surg History Medical History (Updated 10/07/20 @ 16:57 by Dustin Verma DO) Acid reflux MARYCARMEN (acute kidney injury) Anxiety Calculus of distal left ureter Chronic back pain R/T INJURY Difficult airway for intubation Dyslipidemia Encounter for pre-operative examination History of ASCVD (atherosclerotic cardiovascular disease) History of Wilms' tumor HTN (hypertension) Hurthle cell neoplasm of thyroid Kidney stones Morbid (severe) obesity due to excess calories Pulmonary nodule Urinary calculi Wilm's tumor of right kidney WITH CHEMO AND RADIATION (1978) Surgical History H/O right nephrectomy secondary to Wilms Tumor H/O unilateral orchiectomy RIGHT, undescended History of cystoscopy WITH STENT INSERTION S/P complete thyroidectomy (11/08/18) 11/08/2018 S/P partial thyroidectomy (09/23/18) Left S/P vasectomy Family History Mother Asthma Hypertension Father Myocardial infarction, Onset Age: 69 Hypertension Coronary heart disease Social History Smoking Status: Never smoker Second Hand Exposure: Yes; Do You Dip or Chew Tobacco: No; Hx Alcohol Use: Yes Alcohol type: beer, wine and hard liquor Alcohol Intake Frequency Comment: Rarely Hx Substance Use: No Preferred Language: Indonesian Communication Ability: Effective Cake Winder Required: No Beliefs That Will Affect Care: None marital status: Current Living Situation: Family current occupational status: employed 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 How many Children do You have: 1 Other Information That Helps Us Care for You: No Feels Safe at Home: Yes Safety Concerns: Feels Safe At This Time Dental Care, Regularly: Yes Assistive Devices: Glasses Review of Systems Review of Systems: REVIEW OF SYSTEMS: Constitutional: No fever, sweats or chills Eyes: No diplopia, no worsening or blurred vision ENT: normal hearing, no trouble swallowing Respiratory: No cough, sputum, dyspnea at rest or on exertion Cardiovascular: No chest pain, tightness or palpitations Abdomen: (+) pain, nausea, NO vomiting, diarrhea or constipation Musculoskeletal: (+) flank pain, No joint pain, calf pain, swelling Neurologic: No weakness, numbness/tingling, or balance problems Psychiatric: (+) anxiety, No depression Skin: No rash or itch Physical Exam Physical Exam: PHYSICAL EXAM: General: awake, alert, no apparent distress Head: Normocephalic, atraumatic ENT: PERRL, EOMI, no pharyngeal exudate, mucous membranes moist Neuro: AAO x 3, speech clear and appropriate, strength intact bilaterally 5/5, sensation intact and equal all extremities and dermatones, no pronator drift Chest: equal rise and fall of the chest, no accessory muscle use, no heaves or thirlls, Clear to auscultation, on room air, Cardiac: Regular rate and rhythm, telelmetry reviewed, skin warm dry, cap refill <3 seconds, peripheral pusles +2 no JVD, no murmur, no JVD, no edema GI: NABS x 4 quadrants, soft, nontender to palpation, no rebound, guarding or tenderness : Spontaneously voiding, no pain, no CVA tenderness, Extremities: Normal inspection, no peripheral edema or erythema, calfs nontender to palpation Psych: Normal mood and affect cits Skin: no rash or erythema Results & Data Results & Data ([facility]) Vital Signs (Past 12 Hours) Vital Signs Temp Pulse Pulse Resp BP BP Pulse Ox 10/07/20 11:48 83 18 177/107 H 94 10/07/20 09:57 36.6 C 67 18 179/107 H 99 Laboratory Results Abnormal lab results 10/07/20 10/07/20 Range/Units 10:10 10:10 RDW Std Deviation 47.2 H (36.4-46.3) fL RDW Coeff of Bibi 14.6 H (11.5-14.5) % Neut # (Auto) 7.29 H (1.4-6.5) K/uL Elbert # (Auto) 0.74 H (0.11-0.59) K/uL Eos # (Auto) 0.51 H (0-0.5) K/uL Immature Gran # (Auto) 0.05 H (0.00-0.02) K/uL Chloride 110 H (98-107) mmol/L Carbon Dioxide 20 L (21-32) mmol/L Glucose 109 H (70-99) mg/dl Diagnostic Findings Abdomen/Pelvis CT 10/07/20 10:[address] WITHOUT CONTRAST CT DOSE: 1622.47 mGy.cm HISTORY: left flank pain TECHNIQUE: Multiaxial CT images of the abdomen and pelvis were performed without contrast. A dose lowering technique was utilized adhering to the principles of ALARA. COMPARISON STUDY: Abdomen and pelvis CT 06/25/2020. FINDINGS: There are few subcentimeter nodules again noted within the right lung base. These remain unchanged. Dominant nodule within the right middle lobe on image 36 measures 5 mm. No pneumoperitoneum. No pneumatosis. No fractures within the visualized osseous structures. Small fat-containing right inguinal hernia, unchanged. Hepatomegaly demonstrating fatty change. This is similar to the prior study. The unenhanced spleen, right adrenal gland, pancreas, and gallbladder are unremarkable. Prior right nephrectomy. Stable 2.5 cm left adrenal gland nodule. Mild left perinephric edema. Multiple small stones seen throughout the left kidney. There is also an 8 mm stone at the left ureteropelvic junction resulting in moderate left hydronephrosis. The bladder is decompressed but appears unremarkable. No retroperitoneal or pelvic lymphadenopathy. Normal caliber abdominal aorta. Stable scarring within the right anterior abdominal wall. Suboptimal evaluation for bowel pathology due to the lack of intravenous and oral contrast. However, there is no definite bowel wall thickening or obstruction. The visualized appendix is unremarkable. IMPRESSION: 1. An 8 mm obstructing stone at the left ureteropelvic junction resulting in moderate left hydronephrosis. 2. Left-sided nephrolithiasis. 3. Hepatic steatosis. 4. Prior right nephrectomy. 5. Stable 2.5 cm left adrenal gland nodule. 6. Stable subcentimeter nodules within the right lung base. Electronically signed by: Pieter Valle M.D. 10/07/2020 11:02 AM Medications Administered Hydromorphone HCl (Hydromorphone Inj 1 Mg/Ml Syringe) 1 mg IV Q30M PRN PRN Reason: Pain Stop: 10/21/20 11:23 Last Admin: 10/07/20 11:44 Dose: 1 mg Documented by: [id number] Morphine Sulfate (Morphine Sulfate 4 Mg/Ml 1 Ml Carp\Vial) 4 mg IV Q15M PRN PRN Reason: Pain Stop: 10/21/20 10:07 Last Admin: 10/07/20 10:16 Dose: 4 mg Documented by: [id number] Discontinued Medications Sodium Chloride (Nss 1000ml) 1,000 mls @ 999 mls/hr IV .Q1H1M STA Stop: 10/07/20 11:08 Last Infusion: 10/07/20 11:19 Dose: 0 mls/hr Documented by: [id number] Admin: 10/07/20 10:15 Dose: 999 mls/hr Documented by: [id number] Ondansetron HCl (Ondansetron Inj 2 Mg/Ml 2 Ml Vial) 4 mg IV NOW STA Stop: 10/07/20 10:09 Last Admin: 10/07/20 10:16 Dose: 4 mg Documented by: [id number] Tamsulosin HCl (Tamsulosin Hcl 0.4 Mg Cap) 0.4 mg PO NOW ONE Stop: 10/07/20 10:09 Last Admin: 10/07/20 10:18 Dose: 0.4 mg Documented by: [id number] ECG Additional Comments: Normal sinus rhythm Right bundle branch block Abnormal ECG When compared with ECG of 16-JUN-2018 03:58, No significant change was found Code Status & VTE Plan Code Status CODE: FULL VTE: SCD, chemoprohylaxis following OR Supervising Physician Co-Signing Physician Notes Patient seen and examined, chart reviewed, case discussed with MERCEDES Dominguez and I agree with his assessment and plan as above. In brief, patient is a 45yo male with prior history of nephrectomy in childhood for Wilms tumor, recurrent left renal stones presenting with 8mm obstructing left stone with moderate hydronephrosis. On exam patient is afebrile, HD stable, NAD. Resting comfortably Skin - warm, dry, intact, no rash HEENT - NC/AT, PERRL, EOMI, MMM, Neck supple Heart - +S1/S2, regular, no m/r/g Lungs - CTA Abd - +BS, soft, NT/ND Ext - warm, well perfused, no clubbing, cyanosis or edema Neuro - grossly nonfocal Labs and images reviewed. UA cloudy with protein/blood/WBC. No bacteria Assessment/Plan - -IVF -Pain medication and antiemetics as needed -Urology consultation appreciated. Plan for OR later today -Remainder of plan as above PG Care Time/CCT Total # of Minutes Spent Total Time Spent with Patient: Total time spent is greater than 50% in coordination of care (as documented) at patient's floor/unit and/or counseling patient: Coding Level of Care Code 32281 Initial Inpt Care Lvl 3 Diagnoses Left ureteral stone N20.1 History of nephrectomy, right Z90.5 Adrenal mass 1 cm to 4 cm in diameter E27.8 HTN (hypertension) I10 Anxiety F41.9 Acid reflux K21.9 Hurthle cell neoplasm of thyroid D34
--- NOTE | 2020-10-07 14:28 | Electrocardiogram Report ---
Test Reason : Blood Pressure : / mmHG Vent. Rate : 078 BPM Atrial Rate : 078 BPM P-R Int : 162 ms QRS Dur : 148 ms QT Int : 408 ms P-R-T Axes : 041 049 017 degrees QTc Int : 465 ms Normal sinus rhythm Right bundle branch block Abnormal ECG When compared with ECG of 16-JUN-2018 03:58, No significant change was found Confirmed by Rolando Bourne ([id number]) on 10/07/2020 2:27:49 PM Referred By: REFERRED SELF Confirmed By:Rolando Bourne
[2020-10-07] MEDS ORDERED: HYDROmorphone INJ 2 MG/ML SYR/VIAL ONE (15:34)
--- NOTE | 2020-10-07 15:40 | Anesthesiology Consultation ---
Date of Service October 07, 2020 Assessment & Plan (1) Encounter for pre-operative examination: Chart Review Chart Review: Acceptable Risk for Surgery and Patient NOT seen in Pre Admission Testing Consults Requested none ASA ASA3 Proposed Anesthesia Anesthesia Type: MAC Risk / Benefits Reviewed With: PT / POA / Parent / Guardian, Accepts Plan and Informed Consent Obtained History Surgery Operation Date: 10/07/20 15:45 Proposed Procedures p Cystosccopy Left Ureteral Stent Insertion - Austyn Pozo, Height/Weight Height: 5 ft 7 in Weight: 133.2 kg Allergies Allergy/AdvReac Type Severity Reaction Status Date / Time cefaclor Allergy Intermediate RASH Verified 10/07/20 11:15 erythromycin base Allergy Intermediate RASH Verified 10/07/20 11:15 Penicillins Allergy Intermediate RASH Verified 10/07/20 11:15 Medications Home Medications Medication Instructions Recorded Confirmed Last Taken levothyroxine 175 mcg capsule 175 mcg PO DAILY #30 cap 03/23/19 10/07/20 10/07/20 allopurinol 300 mg tablet 300 mg PO DAILY #90 tab 12/25/19 10/07/20 10/07/20 potassium citrate 10 mEq (1,080 10 meq PO DAILY #90 tab 12/25/19 10/07/20 07/2 21 mg) tablet,extended release acetaminophen 500 mg tablet 1,000 mg PO Q6H PRN 10/07/20 10/07/20 10/07/20 07:00 (Tylenol Extra Strength) Active Medications Generic Name Dose Route Start Last Admin Trade Name Freq PRN Reason Stop Dose Admin Hydromorphone HCl 1 mg 10/07/20 11:24 10/07/20 11:44 Hydromorphone Inj 1 Mg/Ml Syringe IV 10/21/20 11:23 1 mg Q30M PRN Administration Pain Morphine Sulfate 4 mg 10/07/20 10:08 10/07/20 10:16 Morphine Sulfate 4 Mg/Ml 1 Ml Carp\Vial IV 10/21/20 10:07 4 mg Q15M PRN Administration Pain NPO Date Last Intake of Fluids: 10/07/20 Time Last Intake of Fluids: 08:00 Date Last Intake of Solids: 10/07/20 Time Last Intake of Solids: 08:00 Past Medical History Medical History (Updated 10/07/20 @ 15:40 by Anup Lion MD) Acid reflux MARYCARMEN (acute kidney injury) Anxiety Calculus of distal left ureter Chronic back pain R/T INJURY Difficult airway for intubation Dyslipidemia Encounter for pre-operative examination History of ASCVD (atherosclerotic cardiovascular disease) History of Wilms' tumor HTN (hypertension) Hurthle cell neoplasm of thyroid Kidney stones Morbid (severe) obesity due to excess calories Pulmonary nodule Urinary calculi Wilm's tumor of right kidney WITH CHEMO AND RADIATION (1978) Exercise / Class Metabolic Activity II 4-5 Yardwork/Stairs/Walk up hill Past Family History Family History Mother Asthma Hypertension Father Myocardial infarction, Onset Age: 69 Hypertension Coronary heart disease Past Surgical History Surgical History H/O right nephrectomy secondary to Wilms Tumor H/O unilateral orchiectomy RIGHT, undescended History of cystoscopy WITH STENT INSERTION S/P complete thyroidectomy (11/08/18) 11/08/2018 S/P partial thyroidectomy (09/23/18) Left S/P vasectomy Past Anesthesia History No Hx of Anesthesia Complications and No Family Hx of Anesthesia Complications History of PONV No Hx of PONV and No Hx of Motion Sickness Social History Smoking Status: Never smoker Hx Alcohol Use: Yes alcohol intake frequency: holidays/special occasions only Hx Substance Use: No substance use type: does not use Physical Exam Vital Signs Last Vital Signs Temp 36.6 C 10/07/20 14:41 Pulse 88 10/07/20 14:41 Resp 18 10/07/20 14:41 BP 151/80 H 10/07/20 14:41 Pulse Ox 97 10/07/20 14:41 Constitutional + morbidly obese ENMT Mouth: no dentition abnormality Thyromental Distance: > or= 3.5 Finger Breadths Mallampati Class: II Neck normal visual inspection and + thick neck Respiratory normal respiratory effort Auscultation: lungs clear to auscultation bilaterally Cardiovascular Rate/Rhythm: regular rate and regular rhythm Psychiatric Orientation: alert Testing Laboratory Results 10/07/20 10:10 10/07/20 10:10
[2020-10-07] MEDS ORDERED: ATROPINE SULFATE 0.1 MG/ML 10ML SYR IV PRN (15:41)
[2020-10-07] MEDS ORDERED: ONDANSETRON INJ 2 MG/ML 2 ML VIAL IV PRN (15:41)
[2020-10-07] MEDS ORDERED: ePHEDrine sulfate 50 MG/ML AMP IV PRN (15:41)
[2020-10-07] MEDS ORDERED: fentaNYL citrate 100 MCG/2 ML VIAL IV PRN (15:41)
[2020-10-07] MEDS ORDERED: MIDAZOLAM HCL 1 MG/ML 2ML VIAL ONE (15:48)
[2020-10-07] MEDS ORDERED: fentaNYL citrate 100 MCG/2 ML VIAL ONE (15:49)
[2020-10-07] MEDS ORDERED: LIDOCAINE 2% 2 ML VIAL/AMP(20MG/ML) INFIL ONE (15:50)
[2020-10-07] MEDS ORDERED: PROPOFOL IV EMULSION 10 MG/ML 20 ML VIAL IV ONE ×3 (15:50→16:40)
[2020-10-07] MEDS ORDERED: ONDANSETRON INJ 2 MG/ML 2 ML VIAL ONE (15:51)
[2020-10-07] MEDS ORDERED: DIATRIZOATE MEGLUMINE 30% 100ML VIAL INSTIL ONE (16:16)
[2020-10-07] MEDS ORDERED: LABETALOL HCL IV 5 MG/ML 20ML IV ONE ×3 (16:36→16:40)
--- NOTE | 2020-10-07 16:49 | Operative Report ---
PG Post Operative Report Pre & Post Diagnosis Operation Date: 10/07/20 15:45 Pre-Op Diagnosis: Left ureteral stone Post-Op Diagnosis: Left ureteral stone I identified the patient and participated in the time-out.: Yes Procedure Operation Date: 10/07/20 15:45 Actual Procedures Cystoscopy with Left retrograde pyelogram and Ureteral Stent Insertion(Left) - Austyn Pozo DO Surgeon Austyn Pozo, II, DO Packing Inspector None Estimated Blood Loss 1 Findings Consistent with Post-Op Diagnosis Stent placed in good position. Specimens None Drains 6 Fr Multilength Anesthesia Type MAC Complications none Disposition Disposition: Recovery Room Indications Patient with obstruction. Risks and benefits discussed at length. Description of Procedure Patient was consented and brought back to the operating room. Patient was placed under anesthesia in the supine position and moved to the dorsal lithotomy position. Patient was prepped and draped in the regular sterile fashion. A time out was completed. A 30degree Cystoscope was placed into the bladder and the entire bladder was ex amined. The UO's were identified. The UO was cannulized with a catheter and a retrograde pyelogram was completed. A wire was then placed. It took considerable manipulation to position the wire past the stone. With the wire in place, a 6 Fr Double J stent was placed. It was confirmed with fluoroscopy. With the stent in place, the bladder was emptied. The scope was removed. The patient was cleaned, aroused from anesthesia, and transferred to the pacu in stable condition having tolerated the procedure well with no complications. I was present and participated in all aspects of the procedure. The patient will be monitored in the PACU until transferred. Plan to set up stone treatment in next 2-3 weeks. I attest to the content of the Intraoperative Record and any orders documented therein. Any exceptions are noted below.
[2020-10-07] MEDS ORDERED: ACETAMINOPHEN 1000 MG/100 ML IV IV PRN (17:32)
[2020-10-07] MEDS ORDERED: MoRPHine SULFATE 2 MG/ML CARP IV PRN (17:32)
--- NOTE | 2020-10-07 17:46 | Anesthesiology Progress Note ---
Date of Service October 07, 2020 Anesthesia Post Procedure Vital Signs Vital Signs: Temp Pulse Pulse Pulse Resp BP BP 10/07/20 17:10 77 14 124/92 10/07/20 17:00 76 21 137/90 10/07/20 16:50 36.1 C L 85 20 178/106 H 10/07/20 14:41 36.6 C 88 18 151/80 H 10/07/20 14:24 87 20 154/89 H 10/07/20 11:48 83 18 177/107 H 10/07/20 09:57 36.6 C 67 18 179/107 H Pulse Ox 10/07/20 17:10 93 10/07/20 17:00 93 10/07/20 16:50 98 10/07/20 14:41 97 10/07/20 14:24 97 10/07/20 11:48 94 10/07/20 09:57 99 Pain Intensity Left Flank: Pain Intensity: 0 Transfer of Care Handoff Completed per policy Notes Mental Status: alert / awake / arousable Patient Amnestic to Procedure: Yes Nausea / Vomiting: adequately controlled Pain: adequately controlled Airway Patency, RR, SpO2: stable & adequate BP & HR: stable & adequate Hydration State: stable & adequate Anesthetic Complications: no major complications apparent
--- NOTE | 2020-10-07 17:53 | Fluoroscopy Report ---
FL retrograde includes kub CLINICAL HISTORY: RETROGRADE AND STENT COMPARISON STUDY: CT of the abdomen and pelvis performed earlier today. FLUOROSCOPY TIME: 78.7 seconds. FLUOROSCOPIC IMAGES: 4 FINDINGS: Fluoroscopy was provided during cystoscopy left retrograde exam with ureteral stent inserti on. Stent is appropriately positioned. IMPRESSION: Fluoroscopy provided during left retrograde exam with left ureteral stent insertion. ACT 112: Negative or not required by law. Electronically signed by: Marino Sierra M.D. 10/07/2020 5:51 PM
[2020-10-07] MEDS: LACTATED RINGER'S 1,000 ML IV SCH (17:58)
[2020-10-07 18:28] LABS: Bacteria Urine Automated Negative (Negative); Bilirubin Urine Negative (Negative); Blood Urine 3+ (Negative); Epithelial Cell Urine Auto >30 /lpf (0-5); Glucose Urine UA Negative (Negative); Ketones Urine Negative (Negative); Leukocyte Esterase Urine Negative (Negative); Nitrite Urine Negative (Negative); Protein Urine 2+ (Negative); RBC Urine Automated >30 /hpf (0-4); Specific Gravity Urine 1.017 (1.000-1.030); Urobilinogen Urine Negative (Negative)
[2020-10-07 18:46] LABS: Appearance Urine Cloudy (Clear); Color Urine Red
[2020-10-07] MEDS: ACETAMINOPHEN 500 MG TAB PO PRN (19:40)
[2020-10-08] MEDS: LACTATED RINGER'S 1,000 ML IV SCH (04:05)
[2020-10-08] MEDS ORDERED: LEVOTHYROXINE SODIUM 175 MCG TABLET PO SCH (06:30)
--- NOTE | 2020-10-08 07:29 | Urology Progress Note ---
Date of Service October 08, 2020 Assessment & Plan (1) Left ureteral stone: (2) Hydronephrosis, left: Plan: 45yo M with a hx solitary kidney admitted with intractable left flank pain and decreased urine output secondary to a 8mm Left UPJ stone with hydronephrosis - POD #1 s/p cystoscopy, retrograde pyelogram, left ureteral stent placement by Dr. Pozo. - Patient is doing well, no complaints of pain this morning. - Afebrile, VSS. - Labs reviewed - Wbc 10.99 and creatinine 0.90. - UC&S pending - OK for discharge from perspective. - Recommend home with flomax, prn pyridium, prn pain control, and antibiotics pending final culture result. - Will arrange outpatient follow-up next week for definitive stone management. - Expected clinical course reviewed with patient, all questions were answered. - Thank you for allowing us to participate in the acute care of Mr. Castillo. Please reconsult us with additional questions, concerns or changes in patient status. Admission and Anticipated Discharge Date Admission Date: October 07, 2020 Subjective Pt examined at bedside this AM. Awake, resting in bed on arrival. Pt reports he is feeling much better today. He denies any pain or discomfort at present. Some hematuria and dysuria. No fevers or chills. Denies nausea/vomiting. Voiding without difficulty. Urine output overnight - 1825ml Eager to go home. Offers no additional complaints at this time. Review of Systems Constitutional: as per Subjective / HPI Gastrointestinal: as per Subjective / HPI Genitourinary: + as per Subjective / HPI Physical Exam Constitutional: well developed and well nourished; no acute distress Respiratory: normal respiratory effort; no labored breathing and no audible wheezes Gastrointestinal (Abdomen): Inspection/Auscultation: abdomen normal to inspection; abdomen not distended Musculoskeletal: Head/Neck/Chest: normocephalic Skin: Warm and dry. No visible rashes or lesions. Neurologic: awake Psychiatric: Orientation: alert, oriented x 3 and cooperative Results & Data ([place]) Vital Signs (Past 12 Hours) Vital Signs Temp Pulse Resp BP Pulse Ox 10/08/20 03:33 36.5 C 84 16 114/72 98 10/07/20 23:12 36.4 C L 92 H 16 97/64 L 97 10/07/20 20:33 36.8 C 89 16 105/70 96 10/07/20 19:35 36.4 C L 71 16 137/84 97 PG Care Time/CCT Total # of Minutes Spent Total Time Spent with Patient: Total time spent is greater than 50% in coordination of care (as documented) at patient's floor/unit and/or counseling patient: Coding Level of Care Code 87115 Subseq Hosp Care Lvl 2 Diagnoses Left ureteral stone N20.1 Hydronephrosis, left N13.30
[2020-10-08] MEDS: ACETAMINOPHEN 500 MG TAB PO PRN (07:46)
[2020-10-08 08:58] VITALS: BP 132/79; PULSE 87; TEMP 98.2; O2SAT 97
[2020-10-08] MEDS ORDERED: TAMSULOSIN HCL 0.4 MG CAP PO SCH (09:00)
[2020-10-08] MEDS ORDERED: allopurinoL 300 MG TAB PO SCH (09:00)
[2020-10-08] MEDS ORDERED: FAMOTIDINE 20 MG in SYRINGE 3 ML IV SCH (09:00)
[2020-10-08 12:07] LABS: Basophils # (auto) 0.02 K/uL (0-0.2); Basophils % (auto) 0.2 %; Eosinophils # (auto) 0.22 K/uL (0-0.5); Hematocrit (blood only) 41.2 % (42-52); Hemoglobin 13.4 g/dL (14.0-18.0); Immature Granulocytes # (auto) 0.02 K/uL (0.00-0.02); Immature Granulocytes % (auto) 0.2 %; Lymphocytes # (auto) 2.36 K/uL (1.2-3.4); Lymphocytes % (auto) 21.5 %; Mean Corpuscular Hemoglobin 28.5 pg (25-34); Mean Corpuscular Hgb Conc 32.5 g/dL (32-36); Mean Corpuscular Volume 87.5 fL (80-100); Mean Platelet Volume 9.9 fL (7.4-10.4); Monocytes # (auto) 0.59 K/uL (0.11-0.59); Monocytes % (auto) 5.4 %; Neutrophils # (auto) 7.78 K/uL (1.4-6.5); Neutrophils % (auto) 70.7 %; Platelet Count 213 K/uL (130-400); RDW Coefficient of Variation 14.4 % (11.5-14.5); RDW Standard Deviation 46.3 fL (36.4-46.3); Red Blood Count 4.71 M/uL (4.7-6.1); White Blood Count 10.99 K/uL (4.8-10.8)
[2020-10-08 12:40] LABS: BUN Creatinine Ratio 17.6 (10-20); Calcium 8.9 mg/dl (8.5-10.1); Creatinine Clr Calc Pharmacy 137.7 ml/min; Est GFR (Non-African American) 103.5 ml/min; Potassium 3.9 mmol/L (3.5-5.1)
--- NOTE | 2020-10-08 12:56 | Discharge Summary ---
Date of Service October 08, 2020 Admission HPI Per Admitting Provider 45 YOM with past medical history of: Wilms tumor with right. nephrectomy, renal stones, hemithyroidectomy and isthmusectomy in 2019, thyroid cancer with SHELDON ablation in 2019, adrenal gland nodule, HTN, GERD, HLD, anxiety. Patient comes to the emergency room today after acute onset of left flank pain that started last night, it was sharp and stabbing in nature and progressively got worse this morning. It was associated with some diarrhea, but no n/v. He came in for evaluation as he was not able to void this morning as he tried and just had some dribbling with blood. His last urination was around 0230 in the morning that was interrupted stream but felt he was able to empty his bladder. Int he EMD he had a CT scan of the abdomen and pelvis which revealed a, an 8 mm obstructing stone at the left ureteropelvic junction resulting in moderate left hydronephrosis. Urology was consulted via the EMD and is planned for surgical intervention today. Patient does not appear septic at this time, with no fever s. Awaiting urine sample, with bladder scan was 63ml. Patient will be admitted for pain control and urological intervention. Will keep NPO. Patient is not vaccinated for COVID 19 and his COVID test on admission is NEGATIVE Estimated risk probability for perioperative [place] or arrest is 0.04%. Principal Diagnosis Left ureterolithiasis Discharge Exam Constitutional WD/WN, vitals as above + morbidly obese Eyes + anicteric sclerae Neck trachea midline, no thyromegaly Respiratory normal respiratory effort, lungs clear to auscultation Cardiovascular RRR, no murmur, no edema Chest (Breasts) Chest: normal inspection of chest Gastrointestinal (Abdomen) normal bowel sounds, soft, nontender, no hepatosplenomegaly Musculoskeletal Extremities: extremities normal to inspection; no cyanosis and no clubbing Skin no rashes, warm and dry Neurologic moves all extremities and awake; no focal motor deficits Psychiatric A+Ox3, euthymic affect Lymphatic no lymphedema Discharge Data Allergies Allergy/AdvReac Type Severity Reaction Status Date / Time cefaclor Allergy Intermediate RASH Verified 10/07/20 11:15 erythromycin base Allergy Intermediate RASH Verified 10/07/20 11:15 Penicillins Allergy Intermediate RASH Verified 10/07/20 11:15 Consultations 10/07/20 12:01 Consult Urology Stat 10/07/20 12:13 ED Decision to Admit Stat Procedures Performed Operation Date: 10/07/20 15:45 Actual Procedures p Cystosccopy Left Ureteral Stent Insertion(Left) - Austyn Pozo, Ordered Studies 10/07/20 FL retrograde includes kub Routine 10/07/20 10:08 CT abd pelvis wo con Stat Hospital Course (1) Left ureteral stone: Patient with history of recurrent left renal stones- remains on allopurinol and potassium citrate for prophy - 8mm obstructing left stone with mod hydronephrosis of the left- Urology consulted - Appreciate Urology assistance-now status post left-sided ureteral stent -Received IV fluids and pain medicine Received 1 dose of IV Rocephin but urinalysis consistent with blood but not infection (WBCs less than epis and no bacteria), urine culture pending but do not think he needs treatment with antibiotics We'll discharged home with Flomax, Pyridium as needed, oxycodone as needed Has urology follow-up plan for stone treatment in the next 2 weeks No fevers or evidence of sepsis or infection, no renal failure He is tolerating p.o. and having minimal pain (2) History of nephrectomy, right: Secondary to Wilms tumor at age of ~4 Renal function normal (3) Adrenal mass 1 cm to 4 cm in diameter: Known and stable, follows with Urology- 2.5 cm in June - 2.3cm in 2018 (4) HTN (hypertension): Appears well controlled when not in acute pain - Was previously on Lisinopril 10mg, this was discontinued (5) Anxiety: No acute needs patient denies outpatient treatment (6) Acid reflux: With famotidine (7) Hurthle cell neoplasm of thyroid: Follows with endocrine continue Synthroid 175 Disposition-stable for discharge to home Total Time Total Time Spent Total Time Spent (In Minutes): 35 minutes Discharge Plan Discharge Items Patient Disposition: Home - Self-Care Reason For Visit: RENAL STONE Discharge Diagnosis: Left ureterolithiasis Condition on Discharge: Good Activity: Resume your previous activity Non-emergency contact: Primary Care Provider and Urologist Call non-emergency contact if: you have any medication questions, your symptoms worsen, your pain is not controlled and you have a fever Follow-up/Referrals: Sulaiman Shipman MD [Physician] - 10/21/20 4:20 pm Myrna Diaz, DO [Primary Care Provider] - 10/19/20 4:30 pm (You will be seeing Adonay SHERWOOD) Diet: Heart Healthy Addtl Attending Provider Instructions: You were admitted with a kidney stone and had a stent placed. You can take Pyridium as needed for painful urination. You can take Flomax every day to help with the pain of the stent. You can take Tylenol as needed for pain or oxycodone as needed for severe pain. If you have severe pain or inability to urinate, fevers, or any other acute concerns, please return to the hospital. Follow-up with the urologist as planned for treatment of your kidney stone. Pending Studies at Discharge: Yes Stand-Alone Forms: [facility] Medications and DC Order Prescriptions: New tamsulosin 0.4 mg Capsule 0.4 mg PO QAM Qty: 14 RF: 0 phenazopyridine [Pyridium] 200 mg tablet 200 mg PO Q8H PRN (Reason: pain with urination) Qty: 6 RF: 0 oxycodone-acetaminophen [Percocet] 5-325 mg tablet 1 tab PO Q6H PRN (Reason: Severe pain) Qty: 7 RF: 0 Continued allopurinol 300 mg tablet 300 mg PO DAILY Qty: 90 RF: 3 potassium citrate 10 mEq (1,080 mg) tablet extended release 10 meq PO DAILY Qty: 90 RF: 3 levothyroxine 175 mcg capsule 175 mcg PO DAILY Qty: 30 RF: 2 acetaminophen [Tylenol Extra Strength] 500 mg Tablet 1,000 mg PO Q6H PRN (Reason: Fever Or Pain) RF: 0 Discharge Orders: Discharge Order (Routine); Ordered 10/08/20 Ordered By: Aura Astorga Admission Data Admit Date/Time: 10/07/20 13:03 Attending Provider: Aura Astorga Admit Provider: Freddie Dominguez Primary Care Provider: Myrna Diaz Other Providers: Sulaiman Shipman ; Margie Betancourt Coding Level of Care Code D/C DAY MANAGEMENT >30 MINS Diagnoses Left ureteral stone N20.1 History of nephrectomy, right Z90.5 Adrenal mass 1 cm to 4 cm in diameter E27.8 HTN (hypertension) I10 Anxiety F41.9 Acid reflux K21.9 Hurthle cell neoplasm of thyroid D34
== END 2020-10-08 14:13 | disposition home or self-care (01) ==
LOC: ED 09:48 → SUATTDRO 13:03 → INTOOBSV 13:03 → 3W 14:24 → OR 14:38 → 3W 14:39

== ENCOUNTER 2021-11-06 10:38 | Observation (INO) ==
--- NOTE | 2021-11-06 10:52 | Emergency Department Note ---
Impression & Plan Renal colic on left side, Left ureteral calculus, Single functional kidney ED Provider Note NAME: DEMIAN POON AGE: 46 SEX: M : 1975 ARRIVES VIA: Walk-In INFORMANT: [Patient][, ] ED PROVIDER(S): [Perico Villar MD] Chief Complaint: Flank pain HPI: Patient presents due to concern for left-sided flank discomfort that describes a sharp nonradiating. Patient states that his pain began around 4 AM this morning and the trajectory Tylenol but without improvement in his pain. The patient did feel warm but denies any true fever or chills. Patient denies any chest pain shortness of breath or associated nausea vomiting. The patient does believe he has some darker colored urine that might be consistent with some blood in the urine but no jj blood. Patient does have a prior history of single kidney due to history of childhood kidney cancer which required its removal. Patient has had a prior history of requiring stone retrieval and ureteral stents. He has followed with Dr. Shipman and more recently with Dr. Simpson with [facility] urology. ROS: See HPI for pertinent positives and negatives. A total of 10 systems were reviewed and otherwise negative. Past medical history: See below Surgical history: See below Social history: See below Physical Exam: GENERAL: NAD, [wearing a mask,] non-toxic. EYE EXAM: Normal conjunctiva. PERRL, no anisocoria and EOM's grossly intact w/o pain. NECK: Supple, no nuchal rigidity, no adenopathy, non-tender. No signs of meningismus. FROM of the neck with good chin to chest and neck extension. No stridor. LUNGS: Clear to auscultation. Normal chest wall mechanics. HEART: NSR, no MRG. ABDOMEN: Abdomen soft, left-sided flank discomfort, normo-active bowel sounds, no masses, no rebound or guarding. BACK: No CVA TTP. SKIN: No rashes and no bruising. UPPER EXTREMITIES: Upper extremities are grossly normal. LOWER EXTREMITIES: Grossly normal, no edema. NEURO EXAM: A&O x3, cranial nerves II-XII grossly intact, normal speech, moves all 4 extremities. Differential diagnoses: Renal colic, UTI, appendicitis, diverticulitis, mesente melba ischemia, aortic pathology, infections, inflammatory bowel disease, PUD, biliary pathology, as well as other pathologies. Course: Patient was seen and evaluated the bedside. Full history physical exam was performed. Imaging Studies: See Below Cardiac monitoring: An order was placed for continuous cardiac monitoring. The monitor shows a rate of 77 with sinus rhythm. MDM: Patient was seen due to concern for possible renal colic. Blood work was obtained. CT abdomen pelvis completed without contrast given the patient's prior history of single kidney. Patient was given IV morphine Zofran and Toradol in addition to IV fluids. The patient's blood work showed a white count of 12 with a normal H&H and platelet count. The patient's kidney function was unremarkable. Urinalysis was blood. The patient CT does show 7 x 3 mm distal left ureteral calculus with moderate left hydro. Given this concern I did speak with Dr. Simpson who recommended the patient stay and that he would consider a stent and stone removal. I did convey the recommendations to the patient as well as his blood work and imaging findings. The patient is agreeable to staying inpatient at this time. I did speak with the on-call hospitalist Dr. Tam and the patient was admitted to the medicine service. Past Med/Surg History Medical History Acid reflux MARYCARMEN (acute kidney injury) Anxiety Calculus of distal left ureter Chronic back pain R/T INJURY Difficult airway for intubation Dyslipidemia Encounter for pre-operative examination History of ASCVD (atherosclerotic cardiovascular disease) History of Wilms' tumor HTN (hypertension) Hurthle cell neoplasm of thyroid Hyperuricemia Kidney stones Morbid (severe) obesity due to excess calories Pulmonary nodule Urinary calculi Vitamin D deficiency Wilm's tumor of right kidney WITH CHEMO AND RADIATION (1978) Surgical History H/O right nephrectomy secondary to Wilms Tumor H/O unilateral orchiectomy RIGHT, undescended History of cystoscopy WITH STENT INSERTION S/P complete thyroidectomy (11/08/18) 11/08/2018 S/P partial thyroidectomy (09/23/18) Left S/P vasectomy Family History Mother Asthma Hypertension Father Myocardial infarction, Onset Age: 69 Hypertension Coronary heart disease Social History Smoking Status: Never smoker Second Hand Exposure: Yes; Hx Alcohol Use: Yes Alcohol type: beer and hard liquor Alcohol Intake Frequency Comment: Rarely Hx Substance Use: No Preferred Language: Georgian Communication Ability: Effective Supervisor Soldering Required: No Beliefs That Will Affect Care: None marital status: Current Living Situation: Spouse current occupational status: employed 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 [employer] How many Children do You have: 1 Feels Safe at Home: Yes Dental Care, Regularly: Yes Assistive Devices: None Allergies Allergies Allergy/AdvReac Type Severity Reaction Status Date / Time cefaclor Allergy Intermediate RASH Verified 10/18/21 14:06 erythromycin base Allergy Intermediate RASH Verified 10/18/21 14:06 Penicillins Allergy Intermediate RASH Verified 10/18/21 14:06 Home Meds Previous Rx's Medication Instructions Recorded levothyroxine 175 mcg capsule 175 mcg PO DAILY #30 caps 03/23/19 allopurinol 300 mg tablet 300 mg PO DAILY #90 tabs 06/15/21 potassium citrate 10 mEq (1,080 20 meq PO BID #120 tabs 06/15/21 mg) tablet,extended release silver sulfadiazine 1 % topical 1 applic topical DAILY #50 grams 10/18/21 cream (Silvadene) sulfamethoxazole 800 1 tab PO BID 7 days #14 tabs 10/18/21 mg-trimethoprim 160 mg tablet (Bactrim DS) Results & Data (ED) Vital Signs Vital Signs - 24 hr 11/06/21 10:38 11/06/21 11:05 11/06/21 13:35 Temperature 36.7 C Temperature Source Temporal Artery Scan Pulse Rate 76 Pulse Rhythm [Right Finger] Regular Pulse Strength [Right Finger] Normal Respiratory Rate 20 16 Respiratory Effort / Characteristics Non-Labored Spontaneous Non-Labored Spontaneous Respiratory Depth Normal Normal Respiratory Pattern Regular Blood Pressure 158/111 H Blood Pressure [Left Arm] 173/112 H Blood Pressure Mean 126 Blood Pressure Mean [Left Arm] 132 Blood Pressure Position [Left Arm] Lying Pulse Oximetry 97 98 96 Oxygen Delivery Method Room Air Room Air Room Air Sepsis Recent Fever Within 48 Hours No Sepsis New/Unexplained Change in Mental Status No Sepsis Action Taken by Nursing No Action Required Home Medications Current Medication List: was personally reviewed by me Laboratory Data Attestation: I reviewed the patient's lab results. Result diagrams: 11/06/21 11:00 11/06/21 14:14 Lab Results 11/06/21 11/06/21 11/06/21 Range/Units 11:00 11:00 11:00 WBC 12.89 H (4.8-10.8) K/ul RBC 5.06 (4.63-6.08) M/uL Hgb 14.2 (14.0-18.0) g/dl Hct 44.0 (40.1-51.0) % MCV 87.0 (80.0-100.0) fL MCH 28.1 (25.0-34.0) pg MCHC 32.3 (32.0-36.0) g/dL RDW Std Deviation 46.2 (36.4-46.3) fL RDW Coeff of Bibi 14.5 (11.5-14.5) % Plt Count 284 (130-400) K/uL MPV 10.6 (9.4-12.4) fL Immature Gran % (Auto) 0.9 % Neut % (Auto) 76.8 % Lymph % (Auto) 14.4 % [place] % (Auto) 4.6 % Eos % (Auto) 2.7 % Baso % (Auto) 0.6 % Neut # (Auto) 9.91 H (1.4-6.5) K/uL Lymph # (Auto) 1.85 (1.2-3.4) K/uL [place] # (Auto) 0.59 (0.24-0.82) K/uL Eos # (Auto) 0.35 (0-0.50) K/uL Baso # (Auto) 0.08 (0-0.2) K/uL Immature Gran # (Auto) 0.11 H (0.00-0.02) K/uL Sodium TNP Potassium TNP Chloride 107 (98-107) mmol/L Carbon Dioxide 20 L (21-32) mmol/L Anion Gap TNP BUN 16 (6-23) mg/dl Creatinine 0.96 (0.6-1.4) mg/dl Est Cr Clr Drug Dosing 127.2 ml/min Est GFR ( Amer) 110.2 ml/min Est GFR (Non-Af Amer) 95.1 ml/min BUN/Creatinine Ratio 16.7 (10-20) Glucose 101 H (70-99(Fasting)) mg/dl Calcium 9.3 (8.5-10.1) mg/dl Total Bilirubin 0.5 (0.2-1.0) mg/dl AST TNP ALT 27 (7-52) U/L Alkaline Phosphatase 66 (34-104) U/L Total Protein 7.5 (6.0-8.3) gm/dl Albumin 4.5 (3.4-5.0) gm/dl Globulin 3.0 (2.5-4.0) gm/dl Albumin/Globulin Ratio 1.5 (0.9-2) Lipase 10 L (11-82) U/L Urine Color Yellow Urine Appearance Cloudy A (Clear) Urine pH 5.0 (4.5-7.5) Ur Specific [place] 1.014 (1.000-1.030) Urine Protein 1+ H (Negative) Urine Glucose (UA) Negative (Negative) Urine Ketones Negative (Negative) Urine Blood 3+ H (Negative) Urine Nitrite Negative (Negative) Urine Bilirubin Negative (Negative) Urine Urobilinogen Negative (Negative) Ur Leukocyte Esterase Trace H (Negative) Urine WBC (Auto) 1-5 (0-5) /hpf Urine RBC (Auto) >30 H (0-4) /hpf U Hyaline Cast (Auto) 1-5 (0-5) /lpf U Epithel Cells (Auto) 10-20 H (0-5) /lpf Urine Bacteria (Auto) Negative (Negative) SARS-CoV-2, RNA, NAAT (NEGATIVE) 11/06/21 11/06/21 11/06/21 Range/Units 12:09 13:11 13:50 WBC (4.8-10.8) K/ul RBC (4.63-6.08) M/uL Hgb (14.0-18.0) g/dl Hct (40.1-51.0) % MCV (80.0-100.0) fL MCH (25.0-34.0) pg MCHC (32.0-36.0) g/dL RDW Std Deviation (36.4-46.3) fL RDW Coeff of Bibi (11.5-14.5) % Plt Count (130-400) K/uL MPV (9.4-12.4) fL Immature Gran % (Auto) % Neut % (Auto) % Lymph % (Auto) % [place] % (Auto) % Eos % (Auto) % Baso % (Auto) % Neut # (Auto) (1.4-6.5) K/uL Lymph # (Auto) (1.2-3.4) K/uL [place] # (Auto) (0.24-0.82) K/uL Eos # (Auto) (0-0.50) K/uL Baso # (Auto) (0-0.2) K/uL Immature Gran # (Auto) (0.00-0.02) K/uL Sodium Cancelled TNP Potassium Cancelled TNP Chloride (98-107) mmol/L Carbon Dioxide (21-32) mmol/L Anion Gap BUN (6-23) mg/dl Creatinine (0.6-1.4) mg/dl Est Cr Clr Drug Dosing ml/min Est GFR ( Amer) ml/min Est GFR (Non-Af Amer) ml/min BUN/Creatinine Ratio (10-20) Glucose (70-99(Fasting)) mg/dl Calcium (8.5-10.1) mg/dl Total Bilirubin (0.2-1.0) mg/dl AST Cancelled TNP ALT (7-52) U/L Alkaline Phosphatase (34-104) U/L Total Protein (6.0-8.3) gm/dl Albumin (3.4-5.0) gm/dl Globulin (2.5-4.0) gm/dl Albumin/Globulin Ratio (0.9-2) Lipase (11-82) U/L Urine Color Urine Appearance (Clear) Urine pH (4.5-7.5) Ur Specific [place] (1.000-1.030) Urine Protein (Negative) Urine Glucose (UA) (Negative) Urine Ketones (Negative) Urine Blood (Negative) Urine Nitrite (Negative) Urine Bilirubin (Negative) Urine Urobilinogen (Negative) Ur Leukocyte Esterase (Negative) Urine WBC (Auto) (0-5) /hpf Urine RBC (Auto) (0-4) /hpf U Hyaline Cast (Auto) (0-5) /lpf U Epithel Cells (Auto) (0-5) /lpf Urine Bacteria (Auto) (Negative) SARS-CoV-2, RNA, NAAT NEGATIVE (NEGATIVE) 08/28/22 Range/Units 14:14 WBC (4.8-10.8) K/ul RBC (4.63-6.08) M/uL Hgb (14.0-18.0) g/dl Hct (40.1-51.0) % MCV (80.0-100.0) fL MCH (25.0-34.0) pg MCHC (32.0-36.0) g/dL RDW Std Deviation (36.4-46.3) fL RDW Coeff of Bibi (11.5-14.5) % Plt Count (130-400) K/uL MPV (9.4-12.4) fL Immature Gran % (Auto) % Neut % (Auto) % Lymph % (Auto) % [place] % (Auto) % Eos % (Auto) % Baso % (Auto) % Neut # (Auto) (1.4-6.5) K/uL Lymph # (Auto) (1.2-3.4) K/uL [place] # (Auto) (0.24-0.82) K/uL Eos # (Auto) (0-0.50) K/uL Baso # (Auto) (0-0.2) K/uL Immature Gran # (Auto) (0.00-0.02) K/uL Sodium 139 Potassium 4.8 Chloride (98-107) mmol/L Carbon Dioxide (21-32) mmol/L Anion Gap BUN (6-23) mg/dl Creatinine (0.6-1.4) mg/dl Est Cr Clr Drug Dosing ml/min Est GFR ( Amer) ml/min Est GFR (Non-Af Amer) ml/min BUN/Creatinine Ratio (10-20) Glucose (70-99(Fasting)) mg/dl Calcium (8.5-10.1) mg/dl Total Bilirubin (0.2-1.0) mg/dl AST 22 ALT (7-52) U/L Alkaline Phosphatase (34-104) U/L Total Protein (6.0-8.3) gm/dl Albumin (3.4-5.0) gm/dl Globulin (2.5-4.0) gm/dl Albumin/Globulin Ratio (0.9-2) Lipase (11-82) U/L Urine Color Urine Appearance (Clear) Urine pH (4.5-7.5) Ur Specific [place] (1.000-1.030) Urine Protein (Negative) Urine Glucose (UA) (Negative) Urine Ketones (Negative) Urine Blood (Negative) Urine Nitrite (Negative) Urine Bilirubin (Negative) Urine Urobilinogen (Negative) Ur Leukocyte Esterase (Negative) Urine WBC (Auto) (0-5) /hpf Urine RBC (Auto) (0-4) /hpf U Hyaline Cast (Auto) (0-5) /lpf U Epithel Cells (Auto) (0-5) /lpf Urine Bacteria (Auto) (Negative) SARS-CoV-2, RNA, NAAT (NEGATIVE) Administered Medications Discontinued Medications Sodium Chloride (Nss 1000ml) 1,000 mls @ 999 mls/hr IV .Q1H1M STA Stop: 11/06/21 12:03 Last Infusion: 11/06/21 12:15 Dose: 0 mls/hr Documented By: Admin: 11/06/21 11:12 Dose: 999 mls/hr Documented By: TRANG Ketorolac Tromethamine (Ketorolac Tromethamine 15 Mg/Ml Vial) 10 mg IV NOW STA Stop: 11/06/21 11:04 Last Admin: 11/06/21 11:11 Dose: 10 mg Documented By: TRANG Morphine Sulfate (Morphine Sulfate 4 Mg/Ml 1 Ml Carp\Vial) 4 mg IV NOW STA Stop: 11/06/21 11:04 Last Admin: 11/06/21 11:11 Dose: 4 mg Documented By: TRANG Ondansetron HCl (Ondansetron Inj 2 Mg/Ml 2 Ml Vial) 4 mg IV NOW STA Stop: 11/06/21 11:04 Last Admin: 11/06/21 11:11 Dose: 4 mg Documented By: TRANG Imaging Data Radiologist's Impression: Abdomen/Pelvis CT 11/06/21 11:03 CT OF THE ABDOMEN AND PELVIS WITHOUT CONTRAST CLINICAL HISTORY: Left flank pain. COMPARISON STUDY: CT of the abdomen and pelvis October 07, 2020. TECHNIQUE: Axial images of the abdomen and pelvis were obtained without IV contrast. Images were reviewed in the axial, sagittal, and coronal planes. Automated exposure control was utilized for the study. A dose lowering technique was utilized adhering to the principles of ALARA. FINDINGS: A few small subpleural nodules within the lower lungs are unchanged from earlier exams. These are benign given stability. No pneumatosis, free air or portal venous gas is present. A 7 mm x 3 mm distal left ureteral calculus located 4 cm proximal to the ureterovesical junction results in moderate left hydroureteronephrosis with perinephric stranding and fluid. There is no abnormality within the right nephrectomy bed. Note is made of a 6 mm calculus within lower pole of the left kidney. No evidence for a bowel obstruction. No lymphadenopathy is present. Hepatic steatosis is noted. Several left adrenal nodules remain unchanged. Spleen and pancreas are unremarkable. No peripancreatic infiltration or fluid. IMPRESSION: 1. 7 mm x 3 mm distal left ureteral calculus which results in moderate left hydroureteronephrosis. 2. 6 mm left lower pole renal calculus. 3. Status post right nephrectomy. 4. Hepatic steatosis. ACT 112: Negative or not required by law. Electronically signed by: Marino Sierra M.D. 11/06/2021 11:41 AM Discharge Plan Visit Data Chief Complaint: Kidney Stone Stated Complaint: LT SIDED KIDNEY STONE ED Provider: Perico Villar Discharge Problem: Renal colic on left side, Left ureteral calculus, Single functional kidney Patient Disposition: Admitted As Inpatient Forms Stand Alone Forms: [facility] beModel Prescriptions Prescriptions: No Action potassium citrate 10 mEq (1,080 mg) tablet extended release 20 meq PO BID Qty: 120 6RF allopurinol 300 mg tablet 300 mg PO DAILY Qty: 90 3RF levothyroxine 175 mcg capsule 175 mcg PO DAILY Qty: 30 2RF silver sulfadiazine [Silvadene] 1 % cream 1 applic topical DAILY Qty: 50 0RF Rx Instructions: apply a 1.5 mm thickness sulfamethoxazole-trimethoprim [Bactrim DS] 800-160 mg tablet 1 tab PO BID 7 Days Qty: 14 0RF Referrals Referrals: Myrna Diaz DO [Primary Care Provider] -
[2021-11-06] MEDS ORDERED: SODIUM CHLORIDE 0.9% 1000ML 1,000 ML IV STA (11:03)
[2021-11-06] MEDS ORDERED: MoRPHine SULFATE 4 MG/ML 1 ML CARP\\VIAL IV STA (11:03)
[2021-11-06] MEDS ORDERED: KETOROLAC TROMETHAMINE 15 MG/ML VIAL IV STA (11:03)
[2021-11-06] MEDS ORDERED: ONDANSETRON INJ 2 MG/ML 2 ML VIAL IV STA (11:03)
[2021-11-06 11:29] LABS: Basophils # (auto) 0.08 K/uL (0-0.2); Basophils % (auto) 0.6 %; Eosinophils # (auto) 0.35 K/uL (0-0.50); Eosinophils % (auto) 2.7 %; Hemoglobin 14.2 g/dl (14.0-18.0); Immature Granulocytes # (auto) 0.11 K/uL (0.00-0.02); Immature Granulocytes % (auto) 0.9 %; Lymphocytes # (auto) 1.85 K/uL (1.2-3.4); Lymphocytes % (auto) 14.4 %; Mean Corpuscular Hemoglobin 28.1 pg (25.0-34.0); Mean Corpuscular Hgb Conc 32.3 g/dL (32.0-36.0); Mean Platelet Volume 10.6 fL (9.4-12.4); Monocytes # (auto) 0.59 K/uL (0.24-0.82); Monocytes % (auto) 4.6 %; Neutrophils # (auto) 9.91 K/uL (1.4-6.5); Neutrophils % (auto) 76.8 %; Platelet Count 284 K/uL (130-400); RDW Coefficient of Variation 14.5 % (11.5-14.5); RDW Standard Deviation 46.2 fL (36.4-46.3); Red Blood Count 5.06 M/uL (4.63-6.08); White Blood Count 12.89 K/ul (4.8-10.8)
[2021-11-06 11:32] LABS: Appearance Urine Cloudy (Clear); Bacteria Urine Automated Negative (Negative); Bilirubin Urine Negative (Negative); Blood Urine 3+ (Negative); Color Urine Yellow; Glucose Urine UA Negative (Negative); Ketones Urine Negative (Negative); Leukocyte Esterase Urine Trace (Negative); Nitrite Urine Negative (Negative); Protein Urine 1+ (Negative); RBC Urine Automated >30 /hpf (0-4); Specific Gravity Urine 1.014 (1.000-1.030); Urobilinogen Urine Negative (Negative)
--- NOTE | 2021-11-06 11:44 | CT Scan Report ---
CT OF THE ABDOMEN AND PELVIS WITHOUT CONTRAST CLINICAL HISTORY: Left flank pain. COMPARISON STUDY: CT of the abdomen and pelvis October 07, 2020. TECHNIQUE: Axial images of the abdomen and pelvis were obtained without IV contrast. Images were revi ewed in the axial, sagittal, and coronal planes. Automated exposure control was utilized for the vladimir dy. A dose lowering technique was utilized adhering to the principles of ALARA. FINDINGS: A few small subpleural nodules within the lower lungs are unchanged from earlier exams. The se are benign given stability. No pneumatosis, free air or portal venous gas is present. A 7 mm x 3 m m distal left ureteral calculus located 4 cm proximal to the ureterovesical junction results in moder ate left hydroureteronephrosis with perinephric stranding and fluid. There is no abnormality within t he right nephrectomy bed. Note is made of a 6 mm calculus within lower pole of the left kidney. No ev idence for a bowel obstruction. No lymphadenopathy is present. Hepatic steatosis is noted. Several le ft adrenal nodules remain unchanged. Spleen and pancreas are unremarkable. No peripancreatic infiltra tion or fluid. IMPRESSION: 1. 7 mm x 3 mm distal left ureteral calculus which results in moderate left hydroureteronephrosis. 2. 6 mm left lower pole renal calculus. 3. Status post right nephrectomy. 4. Hepatic steatosis. ACT 112: Negative or not required by law. Electronically signed by: Marino Sierra M.D. 11/06/2021 11:41 AM
[2021-11-06 11:56] LABS: Alanine Aminotransferase 27 U/L (7-52); Albumin Globulin Ratio 1.5 (0.9-2); Albumin Level 4.5 gm/dl (3.4-5.0); Alkaline Phosphatase 66 U/L (34-104); BUN Creatinine Ratio 16.7 (10-20); Bilirubin,Total 0.5 mg/dl (0.2-1.0); Blood Urea Nitrogen 16 mg/dl (6-23); Calcium 9.3 mg/dl (8.5-10.1); Carbon Dioxide 20 mmol/L (21-32); Chloride 107 mmol/L (98-107); Creatinine Clr Calc Pharmacy 127.2 ml/min; Est GFR (African American) 110.2 ml/min; Est GFR (Non-African American) 95.1 ml/min; Glucose 101 mg/dl (70-99(Fasting)); Lipase 10 U/L (11-82); Total Protein 7.5 gm/dl (6.0-8.3)
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
[2021-11-06 14:48] LABS: Potassium 4.8 mmol/L (3.5-5.1)
[2021-11-06] MEDS ORDERED: cefTRIAXone SODIUM 2,000 MG/70 ML BAG IV STA (14:56)
[2021-11-06] MEDS ORDERED: TAMSULOSIN HCL 0.4 MG CAP PO ONE (16:34)
[2021-11-06] MEDS ORDERED: ACETAMINOPHEN 1000 MG/100 ML IV IV PRN (16:34)
--- NOTE | 2021-11-06 17:00 | Anesthesiology Consultation ---
Date of Service November 06, 2021 Assessment & Plan (1) Encounter for pre-operative examination: Chart Review Chart Review: Acceptable Risk for Surgery History Height/Weight Height: 5 ft 6 in Weight: 135.7 kg Allergies Allergy/AdvReac Type Severity Reaction Status Date / Time cefaclor Allergy Intermediate RASH Verified 10/18/21 14:06 erythromycin base Allergy Intermediate RASH Verified 10/18/21 14:06 Penicillins Allergy Intermediate RASH Verified 10/18/21 14:06 Medications Home Medications Medication Instructions Recorded Confirmed Last Taken levothyroxine 175 mcg capsule 175 mcg PO DAILY #30 caps 03/23/19 10/18/21 10/14/20 05:00 allopurinol 300 mg tablet 300 mg PO DAILY #90 tabs 06/15/21 10/18/21 Unknown potassium citrate 10 mEq (1,080 20 meq PO BID #120 tabs 06/15/21 10/18/21 Unknown mg) tablet,extended release silver sulfadiazine 1 % topical 1 applic topical DAILY #50 grams 10/18/21 10/18/21 Unknown cream (Silvadene) sulfamethoxazole 800 1 tab PO BID 7 days #14 tabs 10/18/21 10/18/21 Unknown mg-trimethoprim 160 mg tablet (Bactrim DS) collagenase clostridium histo. 250 1 applic topical UD 11/06/21 11/06/21 Unknown unit/gram topical ointment (Santyl) Past Medical History Medical History Acid reflux MARYCARMEN (acute kidney injury) Anxiety Calculus of distal left ureter Chronic back pain R/T INJURY Difficult airway for intubation Dyslipidemia Encounter for pre-operative examination History of ASCVD (atherosclerotic cardiovascular disease) History of Wilms' tumor HTN (hypertension) Hurthle cell neoplasm of thyroid Hyperuricemia Kidney stones Morbid (severe) obesity due to excess calories Pulmonary nodule Urinary calculi Vitamin D deficiency Wilm's tumor of right kidney WITH CHEMO AND RADIATION (1978) Past Family History Family History Mother Asthma Hypertension Father Myocardial infarction, Onset Age: 69 Hypertension Coronary heart disease Past Surgical History Surgical History H/O right nephrectomy secondary to Wilms Tumor H/O unilateral orchiectomy RIGHT, undescended History of cystoscopy WITH STENT INSERTION S/P complete thyroidectomy (11/08/18) 11/08/2018 S/P partial thyroidectomy (09/23/18) Left S/P vasectomy Social History Smoking Status: Never smoker Hx Alcohol Use: Yes Alcohol type: beer and hard liquor alcohol intake frequency: holidays/special occasions only Hx Substance Use: No substance use type: does not use Physical Exam Vital Signs Last Vital Signs Temp 37.0 C 11/06/21 16:16 Pulse 87 11/06/21 16:16 Resp 18 11/06/21 16:16 BP 168/100 H 11/06/21 16:16 Pulse Ox 97 11/06/21 16:16 O2 Del Method 11/06/21 16:16 Testing Laboratory Results 11/06/21 11:00 11/06/21 14:14 Urine Color Yellow 11/06/21 11:00 Urine Appearance Cloudy (Clear) A 11/06/21 11:00 Urine pH 5.0 (4.5-7.5) 11/06/21 11:00 Ur Specific [place] 1.014 (1.000-1.030) 11/06/21 11:00 Urine Protein 1+ (Negative) H 11/06/21 11:00 Urine Glucose (UA) Negative (Negative) 11/06/21 11:00 Urine Ketones Negative (Negative) 11/06/21 11:00 Urine Nitrite Negative (Negative) 11/06/21 11:00 Ur Leukocyte Esterase Trace (Negative) H 11/06/21 11:00 Urine WBC (Auto) 1-5 /hpf (0-5) 11/06/21 11:00 Urine RBC (Auto) >30 /hpf (0-4) H 11/06/21 11:00 U Hyaline Cast (Auto) 1-5 /lpf (0-5) 11/06/21 11:00 U Epithel Cells (Auto) 10-20 /lpf (0-5) H 11/06/21 11:00 Urine Bacteria (Auto) Negative (Negative) 11/06/21 11:00 Laboratory Tests 11/06/21 11:00 Creatinine 0.96 Electrocardiogram Date: 10/07/20 Findings: + NSR @ (78) and + RBBB
[2021-11-06] MEDS: LACTATED RINGER'S 1,000 ML IV SCH ×2 (17:21→23:54)
[2021-11-06] MEDS ORDERED: MIDAZOLAM HCL 1 MG/ML 2ML VIAL ONE ×2 (17:37→18:06)
[2021-11-06] MEDS: HYDROmorphone INJ 0.5 MG/0.5 ML SYR IV PRN ×2 (17:37→23:51)
[2021-11-06] MEDS ORDERED: fentaNYL citrate 100 MCG/2 ML VIAL ONE (17:37)
--- NOTE | 2021-11-06 18:01 | Urology Consultation ---
Date of Consultation November 06, 2021 Assessment & Plan (1) Left ureteral calculus: Obstruction of the left ureter and a [place] nephric patient He additionally has a small stone within the left kidney We will plan for cystoscopy and stent placement now to temporize measures and restore normal renal drainage Fortunately his creatinine has not yet changed substantially Likely discharge home and outpatient treatment of his stones at a later date after the stent placement Risks, benefits, expectations reviewed History of Present Illness Attending Physician: Wayne Tam MD History of Present Illness [place] nephric 46-year-old gentleman with a long history of kidney stones and numerous prior interventions who presented to the emergency room today with acute left flank pain He has an elevated white count of 12.8 His creatinine is at baseline1.0, however, CT shows evidence of an obstructing ureteral calculus with another smaller stone within the left kidney He is hypertensive but afebrile and otherwise hemodynamically stable Allergies Allergy/AdvReac Type Severity Reaction Status Date / Time cefaclor Allergy Intermediate RASH Verified 10/18/21 14:06 erythromycin base Allergy Intermediate RASH Verified 10/18/21 14:06 Penicillins Allergy Intermediate RASH Verified 10/18/21 14:06 Home Medications Medication Instructions Recorded Confirmed Type levothyroxine 175 mcg capsule 175 mcg PO DAILY #30 caps 03/23/19 10/18/21 Rx allopurinol 300 mg tablet 300 mg PO DAILY #90 tabs 06/15/21 10/18/21 Rx potassium citrate 10 mEq (1,080 20 meq PO BID #120 tabs 06/15/21 10/18/21 Rx mg) tablet,extended release silver sulfadiazine 1 % topical 1 applic topical DAILY #50 grams 10/18/21 10/18/21 Rx cream (Silvadene) sulfamethoxazole 800 1 tab PO BID 7 days #14 tabs 10/18/21 10/18/21 Rx mg-trimethoprim 160 mg tablet (Bactrim DS) collagenase clostridium histo. 250 1 applic topical UD 11/06/21 11/06/21 History unit/gram topical ointment (Santyl) Patient History Medical History Acid reflux MARYCARMEN (acute kidney injury) Anxiety Calculus of distal left ureter Chronic back pain R/T INJURY Difficult airway for intubation Dyslipidemia Encounter for pre-operative examination History of ASCVD (atherosclerotic cardiovascular disease) History of Wilms' tumor HTN (hypertension) Hurthle cell neoplasm of thyroid Hyperuricemia Kidney stones Morbid (severe) obesity due to excess calories Pulmonary nodule Urinary calculi Vitamin D deficiency Wilm's tumor of right kidney WITH CHEMO AND RADIATION (1978) Surgical History H/O right nephrectomy secondary to Wilms Tumor H/O unilateral orchiectomy RIGHT, undescended History of cystoscopy WITH STENT INSERTION S/P complete thyroidectomy (11/08/18) 11/08/2018 S/P partial thyroidectomy (09/23/18) Left S/P vasectomy Family History Mother Asthma Hypertension Father Myocardial infarction, Onset Age: 69 Hypertension Coronary heart disease Social History Smoking Status: Never smoker Second Hand Exposure: Yes; Hx Alcohol Use: Yes Alcohol type: beer and hard liquor Alcohol Intake Frequency Comment: Rarely Hx Substance Use: No Preferred Language: Tamazight Communication Ability: Effective Customer Service Supervisor Required: No Beliefs That Will Affect Care: None marital status: Current Living Situation: Spouse current occupational status: employed 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 How many Children do You have: 1 Other Information That Helps Us Care for You: No Feels Safe at Home: Yes Dental Care, Regularly: Yes Assistive Devices: None Assistive Devices Comment: glasses for driving - not present Review of Systems Constitutional: no fever, no chills and no fatigue Eyes: no worsening vision Ear, Nose, Mouth, Throat: no facial pain and no pain with swallowing Respiratory: no cough and no dyspnea Cardiovascular: no chest pain and no palpitations Gastrointestinal: + abdominal pain and + nausea; no vomiting Musculoskeletal: no back pain Integumentary: no rash and no urticaria Neurologic: no gait abnormality and no unsteadiness Psychiatric: no behavioral changes and no depression Endocrine: no fatigue Physical Exam Constitutional: well developed and well nourished Neck: neck nontender Respiratory: normal respiratory effort; no respiratory distress and does not use accessory muscles Cardiovascular: Rate/Rhythm: regular rate Vessels: radial pulses present Extremities: no edema Gastrointestinal (Abdomen): Inspection/Auscultation: abdomen normal to inspection Percussion/Palpation: abdomen soft; abdomen nontender and no guarding Musculoskeletal: Head/Neck/Chest: normocephalic and head atraumatic Extremities: extremities normal to inspection Skin: no rashes and no lesions Trauma: no evidence of skin trauma Neurologic: awake; not obtunded Speech / Cognition: normal speech Motor/Sensory: no tremor Psychiatric: Orientation: alert and oriented x 3 Genitourinary: no CVA tenderness Lymphatic: no lymphadenopathy Results & Data ([facility]) Vital Signs (Past 12 Hours) Vital Signs Temp Pulse Pulse Resp BP BP Pulse Ox 11/06/21 16:16 37.0 C 87 18 168/100 H 97 11/06/21 15:51 76 16 173/112 H 96 11/06/21 13:35 16 173/112 H 96 11/06/21 11:05 98 11/06/21 10:38 36.7 C 76 20 158/111 H 97 O2 Del Method 11/06/21 16:16 Room Air 11/06/21 15:51 Room Air 11/06/21 13:35 Room Air 11/06/21 11:05 Room Air 11/06/21 10:38 Room Air PG Care Time/CCT Total # of Minutes Spent Total Time Spent with Patient: Total time spent is greater than 50% in coordination of care (as documented) at patient's floor/unit and/or counseling patient: Coding Level of Care Code 27887 Inpt Consult Level 4 Diagnoses Left ureteral calculus N20.1
[2021-11-06] MEDS ORDERED: fentaNYL citrate 100 MCG/2 ML VIAL IV PRN (18:06)
[2021-11-06] MEDS ORDERED: ONDANSETRON INJ 2 MG/ML 2 ML VIAL IV PRN (18:06)
[2021-11-06] MEDS ORDERED: LABETALOL HCL IV 5 MG/ML 20ML IV PRN (18:06)
[2021-11-06] MEDS ORDERED: ATROPINE SULFATE 0.1 MG/ML 10ML SYR IV PRN (18:06)
[2021-11-06] MEDS ORDERED: KETAMINE 50 MG/5 ML SYRINGE ONE (18:07)
[2021-11-06] MEDS ORDERED: ONDANSETRON INJ 2 MG/ML 2 ML VIAL ONE (18:29)
[2021-11-06] MEDS ORDERED: PROPOFOL IV EMULSION 10 MG/ML 20 ML VIAL IV ONE (18:29)
[2021-11-06] MEDS ORDERED: LIDOCAINE 2% MPF LOCAL 5 ML VIAL INFIL ONE (18:29)
--- NOTE | 2021-11-06 18:42 | Operative Report ---
PG Post Operative Report Pre & Post Diagnosis Operation Date: 11/06/21 17:30 Pre-Op Diagnosis: Left ureteral calculus Post-Op Diagnosis: Left ureteral calculus I identified the patient and participated in the time-out.: Yes Procedure Operation Date: 11/06/21 17:30 Actual Procedures p Cystoscopy, Left Ureteral Stent Insertion(Left) - Mg Simpson MD Surgeon Mg Simpson MD Stone Repairer none Estimated Blood Loss 0 Findings Consistent with Post-Op Diagnosis Specimens none Description of Procedure The patient was identified in the preoperative holding area, appropriate informed consents were reviewed and completed and the patient was transferred to the operative suite. Upon arrival, appropriate antibiotics and anesthesia were administered and the patient was placed in dorsal lithotomy position and prepped and draped in sterile fashion. Taken the case I attempted to pass a 22 Yoruba cystoscope but his meatus would not quite accommodate the scope. In turn I dilated the meatus utilizing male urethral sounds and dilating sequentially from 18 Yoruba to 24 Yoruba. The scope then passed without difficulty. Inspection of the urethra was unremarkable and he has a relatively modest size prostate. Inspection of the bladder also was unremarkable as it is quite healthy. Left ureteral orifice was identified and intubated with a sensor wire. There was some resistance in the mid/distal ureter consistent with an obstructing stone. I was able to advance the wire beyond it without difficulty position in the kidney. I then placed a 6 Yoruba by 26 cm double-J stent. There is good curl in the kidney as well as within the bladder. His bladder was emptied and he was reversed of anesthesia and taken to the recovery room in stable condition. There were no complications. I attest to the content of the Intraoperative Record and any orders documented therein. Any exceptions are noted below.
--- NOTE | 2021-11-06 18:55 | Anesthesiology Progress Note ---
Date of Service November 06, 2021 Anesthesia Post Procedure Vital Signs Vital Signs: Temp Pulse Pulse Pulse Resp BP BP 11/06/21 18:50 91 H 16 144/93 H 11/06/21 18:43 36.1 C L 92 H 16 142/92 H 11/06/21 16:16 37.0 C 87 18 168/100 H 11/06/21 15:51 76 16 173/112 H 11/06/21 13:35 16 173/112 H 11/06/21 11:05 11/06/21 10:38 36.7 C 76 20 158/111 H Pulse Ox O2 Del Method 11/06/21 18:50 96 11/06/21 18:43 97 11/06/21 16:16 97 Room Air 11/06/21 15:51 96 Room Air 11/06/21 13:35 96 Room Air 11/06/21 11:05 98 Room Air 11/06/21 10:38 97 Room Air Pain Intensity Left Flank: Pain Intensity: 7 Transfer of Care Handoff Completed per policy Notes Mental Status: alert / awake / arousable Patient Amnestic to Procedure: Yes Nausea / Vomiting: adequately controlled Pain: adequately controlled Airway Patency, RR, SpO2: stable & adequate BP & HR: stable & adequate Hydration State: stable & adequate Anesthetic Complications: no major complications apparent
--- NOTE | 2021-11-06 19:16 | Fluoroscopy Report ---
FL KUB CLINICAL HISTORY: LT CYSTO STENT COMPARISON STUDY: CT of the abdomen and pelvis performed earlier today. FLUOROSCOPY TIME: 7 seconds. FLUOROSCOPIC IMAGES: 2 FINDINGS: Fluoroscopy was provided during cystoscopy and left ureteral stent placement. Stent is appr opriately positioned. IMPRESSION: Fluoroscopy provided during cystoscopy and left ureteral stent placement. ACT 112: Negative or not required by law. Electronically signed by: Marino Sierra M.D. 11/06/2021 7:14 PM
[2021-11-06] MEDS: ACETAMINOPHEN 325 MG TAB PO PRN (20:25)
[2021-11-07] MEDS ORDERED: LEVOTHYROXINE SODIUM 175 MCG TABLET PO SCH (06:30)
[2021-11-07 07:23] LABS: Basophils # (auto) 0.05 K/uL (0-0.2); Basophils % (auto) 0.5 %; Eosinophils # (auto) 0.34 K/uL (0-0.50); Eosinophils % (auto) 3.1 %; Hematocrit (blood only) 38.1 % (40.1-51.0); Hemoglobin 12.5 g/dl (14.0-18.0); Immature Granulocytes # (auto) 0.06 K/uL (0.00-0.02); Immature Granulocytes % (auto) 0.5 %; Mean Corpuscular Hemoglobin 28.5 pg (25.0-34.0); Mean Corpuscular Hgb Conc 32.8 g/dL (32.0-36.0); Mean Corpuscular Volume 86.8 fL (80.0-100.0); Mean Platelet Volume 9.9 fL (9.4-12.4); Monocytes # (auto) 0.83 K/uL (0.24-0.82); Monocytes % (auto) 7.5 %; Neutrophils # (auto) 7.52 K/uL (1.4-6.5); Neutrophils % (auto) 68.4 %; Platelet Count 216 K/uL (130-400); RDW Coefficient of Variation 14.6 % (11.5-14.5); RDW Standard Deviation 46.5 fL (36.4-46.3); Red Blood Count 4.39 M/uL (4.63-6.08)
[2021-11-07 07:47] LABS: BUN Creatinine Ratio 19.4 (10-20); Calcium 8.9 mg/dl (8.5-10.1); Creatinine Clr Calc Pharmacy 131.3 ml/min; Est GFR (African American) 114.5 ml/min; Est GFR (Non-African American) 98.8 ml/min; Potassium 4.1 mmol/L (3.5-5.1)
[2021-11-07] MEDS: ACETAMINOPHEN 325 MG TAB PO PRN (08:09)
[2021-11-07] MEDS: LACTATED RINGER'S 1,000 ML IV SCH (08:09)
[2021-11-07] MEDS ORDERED: allopurinoL 300 MG TAB PO SCH (09:00)
[2021-11-07] MEDS ORDERED: TAMSULOSIN HCL 0.4 MG CAP PO SCH (09:00)
[2021-11-07] MEDS ORDERED: COLLAGENASE OINT 30 GM TUBE EXT SCH (10:15)
--- NOTE | 2021-11-07 11:00 | Urology Progress Note ---
Date of Service November 07, 2021 Assessment & Plan (1) Left ureteral calculus: (2) Hydronephrosis: (3) History of nephrectomy, right: Plan: 46 yo M mononephric patient with obstruction of the left ureter. - Pt POD#1 s/p cystoscopy and left ureteral stent placement. - Doing well, progressing as expected. - Afebrile, lab work reviewed - creatinine 0.93, WBC 11.00. - Tolerating left ureteral stent with minimal bother. - Okay to d/c from perspective when medically stable. - Recommend d/c with Tamsulosin, prn Pyridium and prn pain medication for stent management. - Expected clinical course reviewed, all questions answered. - Will arrange outpatient follow-up with our service to discuss definite stone management. Admission and Anticipated Discharge Date Admission Date: November 06, 2021 Subjective Patient seen this AM. He is awake and sitting up in a chair with family in room. Subjectively doing well. No flank or abdominal discomfort. Voiding without difficulty. Notes mild dysuria with void, hematuria clearing. No nausea or vomiting. No fever or chills. Review of Systems Constitutional: as per Subjective / HPI Gastrointestinal: as per Subjective / HPI Genitourinary: + as per Subjective / HPI Physical Exam Constitutional: + obese; no acute distress and not ill appearing Respiratory: no respiratory distress and no labored breathing Cardiovascular: Extremities: no pedal edema Gastrointestinal (Abdomen): Inspection/Auscultation: abdomen normal to inspection; abdomen not distended Musculoskeletal: Head/Neck/Chest: normocephalic and head atraumatic Neurologic: moves all extremities and awake Psychiatric: Orientation: alert and oriented x 3 Genitourinary: Urine in urinal is clear yellow Results & Data ([facility]) Vital Signs (Past 12 Hours) Vital Signs Temp Pulse Resp BP Pulse Ox O2 Del Method 11/07/21 09:14 36.8 C 90 16 138/85 98 Room Air 11/07/21 00:40 36.7 C 86 16 106/68 95 Room Air PG Care Time/CCT Total # of Minutes Spent Total Time Spent with Patient: Total time spent is greater than 50% in coordination of care (as documented) at patient's floor/unit and/or counseling patient: Coding Level of Care Code 20644 Subseq Hosp Care Lvl 2 Diagnoses Left ureteral calculus N20.1 Hydronephrosis N13.2 Hydronephrosis type: with ureteral calculous obstruction History of nephrectomy, right Z90.5 (1) Hydronephrosis Hydronephrosis type: with ureteral calculous obstruction Qualified Code(s): N13.2 - Hydronephrosis with renal and ureteral calculous obstruction
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
== END 2021-11-07 14:20 | disposition home or self-care (01) ==
LOC: ED 10:38 → INTOOBSV 13:59 → SUATTDRO 13:59 → 3E 13:59